=== PATIENT | female | born 1960 | race Caucasian/White ===

== ENCOUNTER 2018-04-17 10:35 | Inpatient (IN) | payer OTHER ==
[2018-04-17] MEDS ORDERED: Morphine VIAL* 10 MG/ML 1 ML VIAL IV ONE (10:44)
[2018-04-17] MEDS ORDERED: HYDROmorphone INJ1* 1 MG/ML SYRINGE IV ONE ×2 (11:49→13:12)
[2018-04-17] MEDS ORDERED: Nicotine Inhaler* 10 MG AMP INH ONE (13:35)
--- NOTE | 2018-04-17 13:35 | ED ---
Lower Extremity - HPI Summary HPI Summary: Patient is a 57-year-old female presenting to the ED after a slip and fall on the ice. She endorses pain to the right lower extremity. Endorses ecchymosis without swelling. Lower extremities deformed on arrival. History of smoking on chronic pain control. Patient denies any other symptoms on this date. She only endorses right lower extremity pain and deformity. She denies history of blood clots. - History of Current Complaint Chief Complaint: EDExtremityLower Stated Complaint: FELL Time Seen by Provider: 04/17/18 10:42 Hx Obtained From: Patient Mechanism Of Injury: Twisted Onset of Pain: Minutes Onset/Duration: Minutes Severity Initially: Severe Severity Currently: Severe Pain Intensity: 10 Pain Scale Used: 0-10 Numeric Timing: Constant Location: Is Discrete @ - right lower extremity Character Of Pain: Aching Associated Signs And Symptoms: Negative: Swelling, Redness, Bruising, Fever, Weakness Aggravating Factor(s): Standing, Ambulation Alleviating Factor(s): Rest, Elevation Able to Bear Weight: No - Risk Factors Gout Risk Factors: Negative DVT Risk Factors: Negative Septic Arthritis Risk Factor: Negative - Allergies/Home Medications Allergies/Adverse Reactions: Allergies Allergy/AdvReac Type Severity Reaction Status Date / Time cephalexin [From Keflex] Allergy Hives Verified 04/17/18 11:10 Home Medications: Home Medications Acetaminophen TAB* [Tylenol TAB*] 325 mg PO Q4H PRN 04/17/18 [History Confirmed 04/17/18] Escitalopram Oxalate [Lexapro] 20 mg PO BEDTIME 04/17/18 [History Confirmed ] Gabapentin CAP(*) [Neurontin 100 mg CAP(*)] 1 cap PO TID PRN 04/17/18 [History Confirmed 04/17/18] LORazepam [Lorazepam] 0.5 tab PO BID PRN 04/17/18 [History Confirmed 04/17/18] Sucralfate TAB* [Carafate*] 1 gm PO TID 04/17/18 [History Confirmed 04/17/18] Tiotropium [place] [Spiriva Respimat] 2 puff INH DAILY PRN 04/17/18 [History Confirmed 04/17/18] PMH/Surg Hx/FS Hx/Imm Hx Previously Healthy: Yes Endocrine/Hematology History: Denies: Hx Diabetes, Hx Thyroid Disease Cardiovascular History: Reports: Hx Hypertension Respiratory History: Denies: Hx Asthma, Hx Chronic Obstructive Pulmonary Disease (COPD) GI History: Denies: Hx Ulcer - Surgical History Surgery Procedure, Year, and Place: appe, hysterectomy, oopher, csection x2, knee surgery, ankle surgery for "shattered" - Immunization History Hx Pertussis Vaccination: No Immunizations Up to Date: Yes Infectious Disease History: No Infectious Disease History: Denies: Hx Clostridium Difficile, Hx Hepatitis, Hx Human Immunodeficiency Virus (HIV), Hx of Known/Suspected MRSA, Hx Shingles, Hx Tuberculosis, Traveled Outside the [place] in Last 30 Days - Social History Occupation: Unemployed Lives: With Family Alcohol Use: None Hx Substance Use: No Substance Use Type: Reports: None Substance Use Comment - Amount & Last Used: pain meds per pain clinic Smoking Status (MU): Light Every Day Tobacco Smoker Type: Cigarettes Amount Used/How Often: 6-7 daily Review of Systems Negative: Fever, Chills, Fatigue, Skin Diaphoresis Negative: Palpitations, Chest Pain Negative: Shortness Of Breath, Cough Genitourinary: Negative Positive: no symptoms reported, see HPI Positive: Arthralgia, Myalgia Skin: Negative Neurological: Negative All Other Systems Reviewed And Are Negative: Yes Physical Exam Triage Information Reviewed: Yes Vital Signs On Initial Exam: Initial Vitals Pulse Pulse Ox 69 97 04/17/18 10:42 04/17/18 10:42 Vital Signs Reviewed: Yes Appearance: Positive: Pain Distress, Signs of Trauma Skin: Positive: Warm, Skin Color Reflects Adequate Perfusion, Other - ecchymosis Head/Face: Positive: Normal Head/Face Inspection Eyes: Positive: EOMI, INOCENCIA, Conjunctiva Clear Neck: Positive: Supple Respiratory/Lung Sounds: Positive: Clear to Auscultation, Breath Sounds Present Musculoskeletal: Positive: Pain @ - right lower ext. Neurological: Positive: Sensory/Motor Intact, Alert, Oriented to Person Place, Time, Speech Normal Psychiatric: Positive: Affect/Mood Appropriate AVPU Assessment: Alert Diagnostics - Vital Signs Vital Signs Temp Pulse Resp BP Pulse Ox 04/17/18 13:18 20 04/17/18 13:03 64 94 04/17/18 12:42 113/68 04/17/18 12:12 69 145/83 95 04/17/18 12:00 66 92 04/17/18 11:53 22 04/17/18 11:42 61 136/83 93 04/17/18 11:12 57 164/115 95 04/17/18 11:00 55 98 04/17/18 10:54 20 04/17/18 10:53 62 172/93 97 04/17/18 10:47 98.2 F 70 20 172/93 92 04/17/18 10:42 69 97 - Laboratory Result Diagrams: 04/17/18 18:13 04/17/18 18:13 Lab Statement: Any lab studies that have been ordered have been reviewed, and results considered in the medical decision making process. - Radiology No standard instances Radiology Interpretation Completed By: Radiologist - IMPRESSION: FRACTURES OF THE PROXIMAL FIBULAR AND DISTAL TIBIAL DIAPHYSES, WITH ARTICULAR EXTENSION OF THE DISTAL TIBIAL FRACTURE. Lower Extremity Course/Dx - Course Course Of Treatment: On arrival, physical examination shows right lower leg deformity with foot to external rotation. X-ray obtained which shows: IMPRESSION: FRACTURES OF THE PROXIMAL FIBULAR AND DISTAL TIBIAL DIAPHYSES, WITH ARTICULAR EXTENSION OF. THE DISTAL TIBIAL FRACTURE. Discussed case with Dr. gIlesias who will see patient in the ED, consult for surgery and I will admit to hospitalist service. - Diagnoses Differential Diagnosis/HQI/PQRI: Positive: Fracture (Closed), Fracture (Open), Sprain, Strain Provider Diagnoses: Closed fracture of tibia and fibula - Physician Notifications Discussed Care Of Patient With: Alon Iglesias Instructed by Provider To: Admit As Inpatient Discharge - Sign-Out/Discharge Documenting (check all that apply): Patient Departure All imaging exams completed and their final reports reviewed: Yes Patient Received Moderate/Deep Sedation with Procedure: No - Discharge Plan Condition: Fair Disposition: ADMITTED TO [facility] - Billing Disposition and Condition Condition: FAIR Disposition: Admitted to [facility]
[2018-04-17] MEDS ORDERED: Mouth Piece, Nicotine* 1 EACH CARTRIDGE ONE (13:47)
[2018-04-17 13:48] LABS: Activated Partial Thrombo Time 16.6 seconds (26.0-36.3); INR 0.77 (0.77-1.02)
[2018-04-17] MEDS ORDERED: oxyCODONE/Acetamin 5/325 MG* TAB PO PRN (13:49)
[2018-04-17] MEDS ORDERED: Acetaminophen TAB* 325 MG PO PRN (13:49)
[2018-04-17] MEDS ORDERED: diPHENhydraMINE IV* 50 MG/ML 1 ml VIAL (BENADRYL) IV PRN (13:49)
[2018-04-17] MEDS ORDERED: Ondansetron INJ* 2 MG/ML VIAL IV PRN (13:49)
[2018-04-17] MEDS: Nicotine Inhaler* 10 MG AMP INH PRN (13:50)
[2018-04-17 13:51] LABS: Albumin 3.8 g/dL (3.2-5.2); CO2 Carbon Dioxide 16 mmol/L (22-32); Calcium 9.3 mg/dL (8.6-10.3); Sodium 135 mmol/L (135-145)
[2018-04-17 13:57] LABS: ALT 11 U/L (7-52); Albumin/Globulin Ratio 1.2 (1-3); Alkaline Phosphatase 61 U/L (34-104); BUN/Creatinine Ratio 24.4 (8-20); Blood Urea Nitrogen 19 mg/dL (6-24); EGFR African American 92.1 (>60); EGFR Non-African American 76.1 (>60); Globulin 3.1 g/dL (2-4); Glucose 96 mg/dL (70-100); Total Protein 6.9 g/dL (6.4-8.9)
[2018-04-17 14:07] LABS: Anion Gap 7 mmol/L (2-11); Chloride 112 mmol/L (101-111)
[2018-04-17] MEDS ORDERED: Magnesium Hydroxide LIQ* 30 ML UDC PO PRN (14:50)
[2018-04-17] MEDS ORDERED: Senna TAB PO PRN (14:50)
[2018-04-17] MEDS ORDERED: Docusate CAP* 100 MG PO PRN (14:50)
[2018-04-17] MEDS ORDERED: Polyethylene Glycol 3350* 17 GM PACKET PO PRN (14:50)
--- NOTE | 2018-04-17 14:55 | HP ---
HISTORY AND PHYSICAL: DATE OF ADMISSION: 04/17/18 REASON FOR HOSPITALIZATION: Right tibia and fibula fractures. 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 on the date of admission, 04/17/18. The patient stepped out of a car. She slipped and twisted her right ankle and lower leg. There was significant pain and the patient was unable to weight bear. She was brought in by ambulance to the [facility] [place] Room. X-rays demonstrated fractures and Orthopedic Surgery consult was called. 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 However, she fractured some ribs just prior to the winter holidays and has not been working since then. The patient lives with her . The patient has not eaten since last night. She had coffee from between 7 and 9 a.m. this morning. 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 She has been seen at the pain clinic by Dr. Gallowya for the last 8 to 10 years and currently takes chronically hydrocodone 10 mg/325 mg, with Tylenol, q.6 hours p.r.n. The patient's primary care physician is TAI Greene, at [facility] , but Dr. Jaime Vanegas has been filling in for Ankita recently. The patient states that in 2004 she had fractures to the contralateral left tibia and fibula, treated with 5 plates. There was subsequent infection, which led to removal of hardware, 4 of the 5 plates. PAST MEDICAL HISTORY: Osteoporosis, disk herniations, chronic pain, hypertension. PAST SURGICAL HISTORY: Left lower leg open reduction and internal fixation, hysterectomy, appendectomy, 2 sections, oophorectomy. MEDICATIONS: 1. Metoprolol. 2. Lorazepam p.r.n. 3. Ibuprofen p.r.n. 4. [place] 10 mg/325 mg p.o. q.6 hours p.r.n. 5. Gabapentin p.r.n. 6. Lexapro q.h.s. 7. Aspirin 81 mg p.o. daily. 8. Tylenol p.r.n. ALLERGIES: KEFLEX (hives). FAMILY HISTORY: The patient's mother had a history of DVTs. The patient does not have a history of DVTs. SOCIAL HISTORY: The patient lives with her . She smokes half a pack per day. She likes to read, walk, and clean in her free time. REVIEW OF SYSTEMS: No current headache, chest pain, shortness of breath, heart palpitations, abdominal pain, diarrhea, numbness, or tingling. No other current joint pain besides the chronic back pain and her right lower extremity pain. PHYSICAL EXAMINATION GENERAL: No acute distress, alert and oriented, appropriate mood and affect, appropriate dress and hygiene, well-coordinated bilateral upper and lower extremities. VITAL SIGNS: Show temperature 98.2 degrees Fahrenheit at 10:47 a.m. At 12:12 p.m. today, pulse was 69, O2 saturations 95% on room air, blood pressure 145/83. EXTREMITIES: Right lower extremity exam shows some soft tissue swelling and bruising about the lower leg. No open skin. There is some clear rotational deformity of the lower leg with the patella facing superior, but the foot facing parallel to the ground consistent with approximately 90 degrees of external rotation deformity in the lower leg. Soft tissue swelling and bruising about the lower leg. Tenderness to palpation on the distal tibia and the proximal fibula. Intact pulses dorsalis pedis and tibialis posterior. Cap refill less than 2 seconds. Sensation intact throughout the foot. No pain with passive range of motion of the toes. DIAGNOSTIC STUDIES/LAB DATA: Labs: Pending. Imaging: X-rays of the right ankle and lower leg were obtained in the emergency department and reviewed by me. These demonstrate fracture of the distal tibial shaft as well as of the proximal fibular neck. Displacement of both. The tibial shaft fracture is just over 3.5 mm. Lateral x-ray view of the ankle and lower leg is worrisome for intraarticular extension of the fracture. ASSESSMENT: 1. Right displaced tibia and fibula fractures. 2. Right tibia shaft fracture is distal with intraarticular extension. PLAN: 1. Hospitalist will see the patient to optimize and clear for surgery. 2. We performed a closed reduction in the emergency room. Procedure: Verbal consent obtained. We pulled longitudinal traction and internally rotated the foot and ankle. This realigned the lower leg. We then placed a posterior long leg splint, one step, and a sugar-tong splint. This was overwrapped with an Len bandage. 3. Elevation on multiple pillows, right lower extremity. 4. Pain control. 5. Labs pending as ordered by hospitalist service. They will evaluate, optimize, and clear the patient for surgery. 6. On careful examination on lateral x-ray views, I am concerned about intraarticular extension, which makes me question intramedullary nailing. To get more information, I am going to get a CT scan of the patient's ankle for more information. 7. Update- Hospitalist service wants an echocardiogram for preop evaluation given a recent history of chest pain. 8. May eat now. NPO after midnight. 8. To the operating room Thursday if/when cleared by Hospitalist for open reduction and internal fixation, right tibia shaft with lag screws and then intramedullary nail. This plan may change based on the findings of pending CT scan. [id number]/CPS #: [id number] [place]
[2018-04-17] MEDS: LORazepam TAB(*) 0.5 MG PO PRN (16:11)
[2018-04-17] MEDS: Gabapentin CAP(*) 100 MG PO PRN (16:11)
[2018-04-17] MEDS: Hydrocodone/Acetamin 10/325 1 TAB PO PRN ×2 (16:11→22:20)
--- NOTE | 2018-04-17 17:21 | CONS ---
CC: Dr. Alon Iglesias; TIA Greene * CONSULTATION REPORT: DATE OF ADMISSION: 04/17/18 DATE OF CONSULT: 04/17/18 PRIMARY CARE PROVIDER: TAI Greene PHYSICIAN REQUESTING CONSULTATION: Dr. Alon Iglesias. ATTENDING PHYSICIAN: Dr. Sal Marley (dictated by Stew Regan NP). REASON FOR CONSULT: Postoperative clearance. HISTORY OF PRESENT ILLNESS: Ms. Cox is a 57-year-old female with past medical history significant for hypertension, emphysema, anxiety, diverticulitis, and IBS who states that she was in her usual state of health this morning when walking to enter a vehicle she slipped and fell and this resulted in right lower extremity pain. She denies any fevers, chills, shortness of breath above her baseline, nausea, vomiting, diarrhea. She states that she intermittently has chest pain. She has found no aggravating causes of this. She states that it just occurs intermittently whether she is resting or walking. She feels that it is anxiety related. She does report having chest pain today prior to her fall, but states that her fall was mechanical and she slipped on ice and that she did not pass out and was not having chest pain at the time of her fall. She reports chronic back pain. She reports having a stress echo, first she says recently, then she states approximately 2 years ago. According to the [facility] records, it appears that the last stress echo she had was in October of 2015. Unfortunately at this time, [facility] is not opening that report for me, so I am unable to see what it said. Due to the right leg pain she was having after her fall, she presented to the emergency room for further evaluation via EMS. EMS did need to give her IV morphine due to the amount of pain she was having en route to the hospital. While in the emergency room, she underwent right lower extremity x-ray showing proximal and distal tibial diaphysis fracture with articular extension of the distal tibial fracture. She was seen by Dr. Iglesias in the emergency room who felt that this would require surgical repair. She was complaining of right ankle pain after she was placed in a splint. She was receiving IV pain medication. The hospitalists were asked to consult the patient for postoperative clearance. She denies any urinary symptoms such as urgency, dysuria, or changes in frequency. PAST MEDICAL HISTORY: 1. Hypertension. 2. Emphysema. 3. Anxiety. 4. Diverticulitis. 5. IBS. PAST SURGICAL HISTORY: 1. Status post bilateral oophorectomy. 2. Status post left ankle ORIF in 2004. 3. Status post hysterectomy. 4. Status post appendectomy. 5. Status post cesarian section x2. HOME MEDICATIONS: Include: 1. Metoprolol tartrate 50 mg oral twice daily. 2. Ibuprofen 800 mg oral every 6 hours as needed for pain. 3. [place] 10/325 mg 1 tablet oral every 6 hours as needed for pain. 4. Lexapro 20 mg by mouth at bedtime. 5. Aspirin 81 mg oral daily. 6. Tylenol 325 mg by mouth every 4 hours as needed for pain. 7. Lorazepam 0.5 mg twice daily as needed for anxiety. 8. Gabapentin 100 mg oral 3 times daily as needed. The patient states that she takes 300 mg at bedtime. 9. Carafate 1 g 3 times daily. 10. Spiriva Respimat 2 puffs inhalation. She states she uses this as needed daily. FAMILY HISTORY: Father with [place] at age 66, which he passed from. Brother with [place] at age 43. No family history of diabetes. Father with history of lung cancer and skin cancer. Mother with a history of skin cancer. Mother with a history of CVA. SOCIAL HISTORY: She is a current smoker smoking approximately 10 cigarettes daily. She has smoked for the last approximately 41 years. She denies alcohol, recreational drug use. Her , Frank Cox, will be her surrogate decision maker in the event she is unable to make decisions for herself. REVIEW OF SYSTEMS: I performed an 11-point review of systems. All the pertinent positives and negatives are mentioned in the history of present illness. The remaining review of systems are negative. PHYSICAL EXAM: Vital Signs: Temperature 98.2, heart rate 69, respiratory rate 22, O2 sat 95% on room air, and blood pressure 113/68. General Appearance: She is alert, pleasant, appears to be in no acute distress. HEENT: Normocephalic, atraumatic. Pupils are equal and reactive to light. Extraocular movements are intact. Respiratory: There is no accessory muscle use. The lungs are clear to auscultation bilateral. Cardiovascular: Regular rate and rhythm. S1 and S2 present. There are no murmurs, rubs, or gallops heard. Abdomen: Soft, nontender, and nondistended. There are bowel sounds present x4. Extremities: There is no lower extremity edema. Pedal pulses are 2+ and symmetric. Musculoskeletal: There is no clubbing or cyanosis noted. The patient exhibits good strength in all extremities. Neurologic: She is alert and oriented x4. Cranial nerves II through XII are grossly intact. Psychological: Calm and cooperative. Skin: There is no rashes or abnormalities seen. She has a splint with an Len wrap to her right lower extremity. DIAGNOSTIC STUDIES/LAB DATA: CBC is pending at this time. Basic metabolic panel: Sodium 135, potassium not performed due to hemolyzed specimen, chloride 112, CO2 of 16, BUN 19, creatinine 0.78, glucose 96. INR 0.77, PTT 15.6. Troponin is also pending at the time of this dictation. EKG shows sinus bradycardia. There are no acute signs of ischemia. When compared to previous EKG from 12/12/09, they are similar. Right ankle x-ray from today. Radiologist's impression: Fractures of the proximal fibular and distal tibial diaphysis with articular extension of the distal tibial fracture. Right lower extremity x-ray from today. Radiologist's impression: Fracture of the proximal fibular and distal tibial diaphysis with articular extension of the distal tibial fracture. Chest x-ray from today. Radiologist's impression: No active cardiopulmonary disease. IMPRESSION: Ms. Cox is a 57-year-old female with past medical history significant for hypertension, emphysema, anxiety, diverticulitis, and irritable bowel syndrome who presents to the emergency room after a mechanical fall resulting in a right tibiofibular fracture. She will be admitted for surgery. ASSESSMENT/PLAN: 1. Right tibiofibular shaft fractures. Management per Orthopedic Surgery with tentative plan for surgery tomorrow. She will have pain management and be placed on a bowel regimen. She has a lower extremity CT pending at this time. According to the RCRI, she has 0 points placing her at class I risk and 3.9% risk of major cardiac event, but in the setting of her report of intermittent chest pain, I would like to get an echocardiogram on her in the morning. Please see below under problem for chest pain for further details. 2. Chest pain. The patient reports that she has intermittent chest pain including with the last episode this morning prior to her fall. She states she has had a workup, but her last stress echo was in 2016. She has an EKG showing no signs of acute ischemia, but I feel that this wants further workup. We are going to monitor on telemetry, trend her troponins, and get an echocardiogram in the morning. As long as this echocardiogram shows no wall motion abnormality , she will be able to proceed to surgery as planned tomorrow. She has a LUIS score of 2. 3. Hypertension. She has been mostly normotensive in the emergency room. We are going to continue her on her metoprolol. 4. Chronic pain. Recommend continuing her on her home gabapentin. 5. Emphysema. She currently does not have any routine inhalers. She is not currently in chronic obstructive pulmonary disease exacerbation. 6. Tobacco abuse. Recommend placing her on nicotine inhaler. She has been informed that this is a tobacco free facility and that no smoking will be allowed. 7. Fluids, electrolytes, and nutrition. Be on a heart healthy diet, n.p.o. after midnight in preparation for surgery. 8. Code status. Full code. 9. DVT prophylaxis. We will defer to Orthopedics. 10. Disposition. Inpatient. Thank you for this consultation. We will continue to follow along. TIME SPENT: The time for this consultation was approximately 60 minutes, greater than half of that was spent with the patient discussing medications, past medical history, events leading to her arrival today, and performing a physical examination. The case has been reviewed with the attending, Dr. Marley, who agrees with the plan of care. STEW FRANKLIN, ZAHRAA [id number] #: [id number] [place]
[2018-04-17 18:28] LABS: ABS Basophils 0.1 10^3/ul (0-0.2); ABS Eosinophils 0.1 10^3/ul (0-0.6); ABS Lymphocytes 4.4 10^3/ul (1.0-4.8); ABS Monocytes 1.4 10^3/ul (0-0.8); ABS Neutrophils 11.7 10^3/ul (1.5-7.7); ABS Nucleated RBC 0 10^3/ul; Eosinophil % 0.7 %; Hematocrit 40 % (35-47); Hemoglobin 13.2 g/dl (12.0-16.0); Lymphocyte % 24.9 %; Mean Corpuscular HGB Conc 33 g/dl (31-36); Mean Corpuscular Hemoglobin 31 pg (27-31); Mean Corpuscular Volume 92 fL (80-97); Mean Platelet Volume 7.3 fL (7.4-10.4); Nucleated Red Blood Cells % 0.1; Platelet Count 354 10^3/ul (150-450); Red Blood Count 4.31 10^6/ul (4.00-5.40); Red Cell Distribution Width 14 % (10.5-15); White Blood Count 17.6 10^3/ul (3.5-10.8)
[2018-04-17 18:38] LABS: Potassium Redraw 4.4 mmol/L (3.5-5.0)
[2018-04-17] MEDS: Morphine VIAL* 4 MG/ML VIAL (1 ml vial) IV PRN (20:47)
[2018-04-17] MEDS ORDERED: Sucralfate TAB* 1 GM PO SCH (21:00)
[2018-04-17] MEDS: Metoprolol Tartrate TAB* 50 mg PO SCH (21:02)
[2018-04-17] MEDS: Citalopram TAB* 40 MG PO SCH (21:02)
[2018-04-17] MEDS: NS 0.9% 1000 ML** 1,000 ML IV SCH (21:34)
[2018-04-18] MEDS: Morphine VIAL* 4 MG/ML VIAL (1 ml vial) IV PRN ×2 (01:18→06:54)
[2018-04-18] MEDS: Gabapentin CAP(*) 100 MG PO PRN (02:38)
[2018-04-18] MEDS: Hydrocodone/Acetamin 10/325 1 TAB PO PRN ×3 (04:24→19:38)
[2018-04-18] MEDS: LORazepam TAB(*) 0.5 MG PO PRN ×2 (04:48→23:31)
[2018-04-18] MEDS: Sucralfate TAB* 1 GM PO SCH ×4 (06:09→15:50)
[2018-04-18] MEDS: NS 0.9% 1000 ML** 1,000 ML IV SCH ×2 (06:56→19:46)
--- NOTE | 2018-04-18 09:37 | PN ---
Subjective Interval History: 40 pack years, wanting cigarette. can't get patch or worsens anxiety(which is very severe already) and palpitations. pinching in left chest, nonexertional x few days. left neck pain. ECHO done, read now done: EF preserved, no wall motion abnormalities. Pt is medically cleared for surgery without further intervention. afebrile no acute events overnight. Objective Active Medications: Acetaminophen (Tylenol Tab*) 650 mg PO Q6H PRN PRN Reason: FEVER Hydrocodone Bitart/Acetaminophen ([place] 10/325 (Nf)) 1 tab PO Q6H PRN PRN Reason: PAIN Last Admin: 04/18/18 04:24 Dose: 1 tab Citalopram Hydrobromide (Celexa Tab*) 40 mg PO BEDTIME [facility] Last Admin: 04/17/18 21:02 Dose: 40 mg Diphenhydramine HCl (Benadryl Iv*) 25 mg IV Q6H PRN PRN Reason: PRURITIS Docusate Sodium (Colace Cap*) 100 mg PO BID PRN PRN Reason: CONSTIPATION Gabapentin (Neurontin Cap(*)) 100 mg PO TID PRN PRN Reason: PAIN Last Admin: 04/18/18 02:38 Dose: 100 mg Sodium Chloride (Ns 0.9% 1000 Ml) 1,000 mls @ 100 mls/hr IV PER RATE [facility] Last Admin: 04/18/18 06:56 Dose: 100 mls/hr Lorazepam (Ativan Tab(*)) 0.5 mg PO BID PRN PRN Reason: ANXIETY Last Admin: 04/18/18 04:48 Dose: 0.5 mg Magnesium Hydroxide (Milk Of Magnesia Liq*) 30 ml PO BID PRN PRN Reason: CONSTIPATION Metoprolol Tartrate (Lopressor Tab*) 50 mg PO BID [facility] Last Admin: 04/17/18 21:02 Dose: 50 mg Morphine Sulfate (Morphine Vial*) 4 mg IV Q4H PRN PRN Reason: PAIN - SEVERE Last Admin: 04/18/18 06:54 Dose: 4 mg Nicotine (Nicotine Inhaler*) 10 mg INH Q2H PRN PRN Reason: CRAVING Ondansetron HCl (Zofran Inj*) 4 mg IV Q6H PRN PRN Reason: NAUSEA Polyethylene Glycol/Electrolytes (Miralax*) 17 gm PO DAILY PRN PRN Reason: CONSTIPATION Senna (Senokot Tab*) 1 tab PO BEDTIME PRN PRN Reason: CONSTIPATION Sucralfate (Carafate*) 1 gm PO 0600,1100,1600 [facility] Last Admin: 04/18/18 08:29 Dose: 1 gm Vital Signs - 8 hr 04/18/18 04/18/18 04/18/18 02:38 04:24 04:46 Temperature 98.6 F Pulse Rate 56 Respiratory 18 18 18 Rate Blood Pressure 116/73 (mmHg) O2 Sat by Pulse 97 Oximetry 04/18/18 04/18/18 04/18/18 04:48 04:51 06:54 Temperature Pulse Rate Respiratory 18 16 18 Rate Blood Pressure (mmHg) O2 Sat by Pulse Oximetry 04/18/18 04/18/18 04/18/18 08:00 08:30 08:31 Temperature Pulse Rate Respiratory 18 18 18 Rate Blood Pressure (mmHg) O2 Sat by Pulse Oximetry Oxygen Devices in Use Now: None Appearance: NAD Eyes: No Scleral Icterus Neck: NL Appearance and Movements; NL JVP, Trachea Midline Respiratory: Symmetrical Chest Expansion and Respiratory Effort, Clear to Auscultation Cardiovascular: NL Sounds; No Murmurs; No JVD Abdominal: NL Sounds; No Tenderness; No Distention, No Hepatosplenomegaly Extremities: No Edema, - - right leg in splint. distal sensation intact. Neurological: Alert and Oriented x 3 Nutrition: Taking PO's Result Diagrams: 04/17/18 18:13 04/17/18 18:13 Assess/Plan/Problems-Billing Assessment: 57 year old female PMH severe anxiety, current smoker (~20 pack years), HTN, IBS presenting with mechanical fall and right tibia-fibula fracture. Recent nonexertional chest pain. No WMA on ECHO, no EKG changse, troponins negative. medically cleared and now s/p ORIF with Dr. Iglesias. - Patient Problems (1) Tibia/fibula fracture Current Visit: Yes Status: Acute Code(s): S82.209A - UNSP FRACTURE OF SHAFT OF UNSP TIBIA, INIT FOR CLOS FX; S82.409A - UNSP FRACTURE OF SHAFT OF UNSP FIBULA, INIT FOR CLOS FX SNOMED Code(s): 081976372 Comment: managment per ortho pain control, PT, bowel regimen. (2) Chest pain Current Visit: Yes Status: Acute Code(s): R07.9 - CHEST PAIN, UNSPECIFIED SNOMED Code(s): 17830050 Comment: ECHO with pEF, no wma cleared for surgery EKG w/o ischemic changes consider stress test as outpatient (3) Anxiety Current Visit: Yes Status: Acute Code(s): F41.9 - ANXIETY DISORDER, UNSPECIFIED SNOMED Code(s): 14119828 Comment: Celexa 40mg daily. (home was lexapro 20mg) (4) DVT prophylaxis Current Visit: Yes Status: Acute Code(s): YGQ0682 - SNOMED Code(s): 541254389 Comment: lovenox. (5) Smoker Current Visit: Yes Status: Acute Code(s): F17.200 - NICOTINE DEPENDENCE, UNSPECIFIED, UNCOMPLICATED SNOMED Code(s): 44308849 Comment: nicotine inhaler. does not tolerate the patch Status and Disposition: ortho inpatient, medicine consulting.
--- NOTE | 2018-04-18 09:40 | PN ---
Progress Note - Progress Note Date of Service: 04/18/18 SOAP: Subjective: Hospitalist saw yesterday. They wanted echo to rule out WMA given history of chest pain. They were also planning on checking troponins. Placed patient on nicotine inhaler. Patient is nervous, has a headache, and wants to smoke a cigarette. Objective: NAD RLE: - Long leg splint in place - May flex and extend toes actively without pain - Toes CR < [address] scan: Showed distal tibial shaft fracture with extension into the ankle joint. Intra-articular extension is non-comminuted and non-displaced; it is mostly in a sagittal plane. There is also a non-displaced distal fibula fracture barely visible on CT. Selected Entries 04/18/18 04:46 Temperature 98.6 F Pulse Rate 56 Respiratory 18 Rate Blood Pressure 116/73 (mmHg) O2 Sat by Pulse 97 Oximetry Laboratory Tests 04/17/18 04/17/18 04/17/18 13:26 18:13 18:13 WBC 17.6 H Neut % (Auto) 66.3 INR (Anticoag Therapy) 0.77 Troponin I 0.00 04/17/18 21:43 WBC Neut % (Auto) INR (Anticoag Therapy) Troponin I 0.00 Assessment: HD 2 complex R lower leg/ankle fractures R distal tibial shaft fracture with intra-articular tibial plafond ankle joint extension R fibular neck fracture R distal fibula non-displaced fracture Plan: - I discussed with patient and family CT findings - Discussed possible surgical treatments for tibial including a) posterior short and long medial plates and b) distal lag screws followed by an IM nail. My technical preference is the latter option, especially given the patient's history of smoking and post-op infection with removal of hardware after surgery for complex lower leg fractures in the distant past per her report. - Echo results and medical clearance are pending - NPO - 3 pillow elevation of RLE in long leg splint - To OR when cleared for ORIF R tibial plafond with screws, ORIF R tibial shaft with IM nail, possible ORIF distal fibula and/or syndesmosis
[2018-04-18] MEDS: Metoprolol Tartrate TAB* 50 mg PO SCH ×3 (10:19→21:43)
--- NOTE | 2018-04-18 10:30 | ECHO ---
Patient: CORNELIA WOLF [facility] Rec#: [id number] : 1960 Date: 04/18/2018 Age: 57y Height: 160 cm / 63.0 in Weight: 57 kg / 125.6 lbs Sex: F BSA: 1.59 Room#: [facility] Admit Date#: 04/17/2018 Type: Inpatient Referring: Soo Mercedes NP Reading: Gabriele Langley MD Claim Adjuster: Soo Carolina RDCS CC: Earle Angulo MD Transthoracic Echocardiogram Indication: Chest Pain BP: 116/73 HR: 62 Rhythm: NSR Findings History: HTN, current smoker. Technical Comments: The study quality is fair. The study is technically limited due to the patient's smoking history. Completed at 0840. Left Ventricle: The left ventricular chamber size is normal. There is no left ventricular hypertrophy. Global left ventricular wall motion and contractility are within normal limits. There is normal left ventricular systolic function. The estimated ejection fraction is 55-60%. There is no consistent Doppler evidence of clinically significant diastolic dysfunction. Left Atrium: The left atrium is moderately dilated. Right Ventricle: The right ventricular cavity size is normal. The right ventricular global systolic function is normal. Right Atrium: The right atrium is mildly dilated. Aortic Valve: The aortic valve is trileaflet. The aortic valve leaflets are mildly thickened. There is a trace of aortic regurgitation. There is no evidence of aortic stenosis. Mitral Valve: The mitral valve leaflets are mildly thickened. There is trace to mild mitral regurgitation. There is no evidence of mitral stenosis. Tricuspid Valve: The tricuspid valve leaflets are normal. There is trace tricuspid regurgitation. Unable to estimate the right ventricular systolic pressure. There is no tricuspid stenosis. Pulmonic Valve: The pulmonic valve structure is not well visualized. The pulmonic valve appears normal. There is a trace pulmonic regurgitation. There is no pulmonic stenosis. Pericardium: There is no significant pericardial effusion. A pericardial fat pad is visualized. Aorta: There is no dilatation of the ascending aorta. There is no dilatation of the aortic arch. The aortic root is normal in size. Pulmonary Artery: The main pulmonary artery is not well visualized. Venous: The inferior vena cava appears normal in size. There is a greater than 50% respiratory change in the inferior vena cava dimension. Summary: There was not any prior study for comparison. Conclusions Global left ventricular wall motion and contractility are within normal limits. There is normal left ventricular systolic function. The estimated ejection fraction is 55-60%. The right ventricular global systolic function is normal. There is no evidence of aortic stenosis. There is trace to mild mitral regurgitation. There is trace tricuspid regurgitation. Unable to estimate the right ventricular systolic pressure. There is no dilatation of the ascending aorta. Measurements Name Value Normal Range RVIDd (AP) 2D 2.8 cm (0.9 - 2.6) RVDdMajor (2D) 3.3 cm (2.2 - 4.4) RAd ISD 4CH 4.9 cm (3.4 - 4.9) RA (A4C)W 4.9 cm (2.9 - 4.6) IVSd (2D) 0.8 cm (0.6 - 1) LVPWd (2D) 0.9 cm (0.6 - 1) LVIDd (2D) 4.3 cm (3.6 - 5.4) LVIDs (2D) 2.7 cm - LV FS (2D) 38 % (25 - 45) Aortic Annulus 1.9 cm (1.4 - 2.6) Ao root diameter (2D) 2.9 cm (2.1 - 3.5) Ascending Ao 3 cm (2.1 - 3.4) Aortic arch 3.2 cm (1.8 - 3.4) LA dimension (AP) 2D 2.8 cm (2.3 - 3.8) LAd ISD 4CH 5.8 cm (2.9 - 5.3) LA ISD 4CH W 3.4 cm (2.5 - 4.5) Name Value Normal Range LA ESV BP (A/L) index 42 ml/m2 - Name Value Normal Range MV E-wave Vmax 0.9 m/sec - MV deceleration time 162 msec - MV A-wave Vmax 0.5 m/sec - MV E:A ratio 1.9 ratio - LV septal e' Vmax 0.09 m/sec - LV lateral e' Vmax 0.09 m/sec - LV E:e' septal ratio 10 ratio - LV E:e' lateral ratio 10 ratio - Name Value Normal Range AV Vmax 1.4 m/sec - AV VTI 32 cm - AV peak gradient 8 mmHg - AV mean gradient 4 mmHg - LVOT Vmax 1.3 m/sec - LVOT VTI 29 cm - LVOT peak gradient 7 mmHg - LVOT mean gradient 3 mmHg - EDDIE Vmax 0.6 m/sec - Name Value Normal Range IVC diameter 1.9 cm - Name Value Normal Range PV Vmax 0.7 m/sec - PV peak gradient 2 mmHg -
--- NOTE | 2018-04-18 10:43 | PN ---
Hospitalist Progress Note ECHO done, read now done: EF preserved, no wall motion abnormalities. Pt is medically cleared for surgery without further intervention.
[2018-04-18] MEDS ORDERED: Clindamycin 900 MG/D5W BAG(*) 900 MG/50 ML BAG IVPB ONE (11:59)
[2018-04-18] MEDS ORDERED: Propofol* 10 MG/ML 20 ML BTL ONE (12:40)
[2018-04-18] MEDS ORDERED: Rocuronium* 10 MG/ML VIAL ONE (12:40)
[2018-04-18] MEDS ORDERED: fentaNYL* 50 MCG/ML 5 ML VIAL (250 MCG VIAL) ONE ×2 (12:40→13:42)
[2018-04-18] MEDS ORDERED: Midazolam* 1 MG/ML 5 ML VIAL (5 MG) ONE ×2 (12:40→16:36)
[2018-04-18] MEDS ORDERED: Dexamethasone IV* 4 MG/ML 1 ML (4 MG) ONE (13:26)
[2018-04-18] MEDS ORDERED: Bupivacaine 0.5%* 50 ML VIAL ONE (14:21)
[2018-04-18] MEDS ORDERED: DiMENhydriNATE IV* 50 MG/ML VIAL IV PUSH PRN (15:28)
[2018-04-18] MEDS ORDERED: Ondansetron INJ* 2 MG/ML VIAL IV PRN (15:28)
[2018-04-18] MEDS ORDERED: HYDROmorphone INJ1* 1 MG/ML SYRINGE IV PRN (15:28)
[2018-04-18] MEDS ORDERED: Naloxone* 0.4 MG/ML 1 ML VIAL IV PRN (15:28)
[2018-04-18] MEDS ORDERED: Ondansetron INJ* 2 MG/ML VIAL ONE ×2 (15:56→16:50)
[2018-04-18] MEDS ORDERED: Ketorolac INJ* 30 MG/ML 1 ML VIAL ONE (15:56)
[2018-04-18] MEDS ORDERED: DiMENhydriNATE IV* 50 MG/ML VIAL ONE (17:09)
[2018-04-18] MEDS ORDERED: fentaNYL* 50 MCG/ML 2 ML VIAL (100 MCG VIAL) ONE (17:48)
[2018-04-18] MEDS: fentaNYL* 50 MCG/ML 2 ML VIAL (100 MCG VIAL) IV PRN ×3 (17:49→18:09)
[2018-04-18] MEDS ORDERED: Acetaminophen TAB* 325 MG PO PRN (19:00)
[2018-04-18] MEDS: Citalopram TAB* 40 MG PO SCH (21:43)
[2018-04-18] MEDS: Clindamycin 600 MG/D5W BAG(*) 600 MG/50 ML BAG IV SCH (21:44)
[2018-04-18] MEDS: Morphine TAB Extended Release (*) 15 MG TAB.ER PO SCH (21:44)
--- NOTE | 2018-04-18 21:48 | OP ---
OPERATIVE REPORT: DATE OF OPERATION: 04/18/18 DATE OF : 60 SURGEON: Alon Iglesias MD SUPPLY PERSON: TAI Keenan ANESTHESIOLOGIST: Jakub Ashley MD ANESTHESIA: General anesthesia, local anesthesia with 10 cc of 0.25% Marcaine without epinephrine. PRE-OP DIAGNOSES: 1. Right distal tibia shaft fracture with intraarticular extension into the ankle joint. 2. Right distal tibia plafond fracture, with simple intraarticular extension. 3. Right distal fibula fracture, nondisplaced at the level of the malleolus. 4. Right fibular neck fracture, minimally displaced. POST-OP DIAGNOSES: 1. Right distal tibia shaft fracture with intraarticular extension into the ankle joint. 2. Right distal tibia plafond fracture, with simple intraarticular extension. 3. Right distal fibula fracture, nondisplaced at the level of the malleolus. 4. Right fibular neck fracture, minimally displaced. PROCEDURES: 1. Open reduction and internal fixation right tibial shaft fracture with intramedullary nail and loc angelica screws. 2. Open reduction and internal fixation right distal tibia plafond fracture with lag screws. 3. Closed treatment, right distal fibula and proximal fibula fractures. ANTIBIOTICS: Clindamycin 900 mg IV. IV FLUIDS: 2200 cc crystalloid. TOURNIQUET TIME: Unavailable now. It was significantly less than 120 minutes. SKIN TO SKIN TIME: 151 minutes. SPECIMEN: None. IMPLANTS: Ulisses tibial nail, 10 mm x 300 mm with a 5 mm end cap added. Proximal locking screws, x 2, each 5 mm in width with one of them 32.5 mm long and the other 50 mm long. Distal locking screws were 5 mm x 32.5 mm, the other was 5 mm x 37.5 mm. I also in the tibial plafond used 2 Synthes screw s. One of them was 3.5 mm cortical, noncannulated, 36 mm in length. The other was 4.0 mm cannulated , partially threaded and that was 40 mm in length. ESTIMATED BLOOD LOSS: Less than 50 cc. COMPLICATIONS: None. INDICATIONS FOR PROCEDURE: The patient is a 57-year-old woman, with hypertension, chronic pain, and a smoking history, who injured herself on 04/17/18, tripping and falling while getting out of a car. Emergency room films showed a high energy injury, a tibial shaft fracture with displacement and comm inution. X-ray hinted and CT scan confirmed an intraarticular extension of that fracture into the ti bial plafond, but no displacement of the intraarticular component. X-ray had identified a fibular ne ck fracture. CT confirmed this and CT also showed a barely visible distal fibula lateral malleolus f racture, nondisplaced. I thought of variety of fixation constructs including short posterior and long medial plates, but ult imately decided on fixing the tibial shaft fracture with an intramedullary nail and fixing the tibial plafond component with 2 lag screws. Fibular neck fracture clearly did not need treatment. Given th at I was going to hold the patient nonweightbearing and she had a smoking history, I decided that I w ould only treat the lateral malleolus fracture should I appreciate a displacement intraoperatively. Of note, the patient described to me surgery on the contralateral ankle in approximately 2004, which involved as many as 5 plates according to her, and required removal of the plates because of infectio n. Discussed risks and potential complications with the patient. The patient decided to go forward with surgery. DESCRIPTION OF PROCEDURE: The patient's signed an operative consent on the floor. Preoperatively on the floor also, the operative extremity was marked. The patient was taken back to the operating room and placed supine on operating room table, radiolucent. Sedated and intubated. The right proximal thigh had been placed on a tourniquet. A bone foam was placed under the right lower extremity. Bump s under the right hemipelvis. The right lower extremity was prepped and then draped. Surgical time-out was performed. Esmarch was applied and tourniquet was elevated to 300 mmHg. I made an anterior approach to the ankle joint and distal tibia. Longitudinal incision made just med ial to the tibialis anterior. I dissected down to joint and bone. Retractors placed. Placed a K-wi re bicortically. This was slightly more medial and angled slightly in a lateral direction. C-arm im aging showed excellent position of K-wire. I overdrilled this and then placed a 4.0 mm partially thr eaded cannulated screw. I then placed a second screw, starting more lateral and aiming more directly posterior. The screw was a 3.5 mm cortical screw. C-arm images showed no displacement at the fract ure site and excellent placement of hardware in all planes. Excellent length of hardware as well. Closure of the ankle wound. I closed all appropriate levels of extensor retinaculum with figure-of-e ight stitches using both Vicryl 2-0 and Ethibond 4-0 suture. Closure of the skin with horizontal mat tress and simple stitches using nylon 4-0 suture. We next moved our attention to the tibial shaft fracture. Radiolucent triangle was obtained. Pertinent anatomy marked with a skin marker. Midline, anterior, l ongitudinal skin incision. Dissection continued down to paratenon. Paratenon split and retracted. I split the patellar tendon at its midpoint. I visualized the proximal tibia. I placed my pin. C-a rm 2-dimensional, confirmed excellent position. Used entry reamer to open hole. Placed ball-tip jovanni dewire with a bend at the tip. Reduced the tibial shaft fracture. Advanced the pin to the distal mo st tibia, proximal to the 2 screws placed previously. At this point, I dropped the tourniquet. Reamed starting at 9 mm up to 11.5 mm. Sized for the nail. Picked a 10 mm x 300 mm nail. I placed the nail. I confirmed adequate reduction. With the guide, I placed 2 locking screws proximally from medial and then lateral. Bone quality was poor for the medial screw, but better for the screw place d from lateral to medial. C-arm confirmed excellent position of screws. I moved to the distal lower leg. I used perfect platinum technique to place 2 screws from medial to la teral through the tibial nail. Final C-arm pictures at the fracture site and at the proximal and distal extent of the tibial shaft, tibial nail showed excellent reduction and fixation. Obtained x-ray views of the ankle. Still could not visualize lateral malleolus fracture. Performed external rotation stress view. No asymmetry of the mortise. So, decided not to fix the lateral malle olus with the plate and screws or to treat the syndesmosis. Irrigation multiple times of the knee joint. End cap was placed at the proximal end of the tibial na il. Closed the patellar tendon with buried and nonburied [id number]-pr-ffegm stitches using Ethibond 0 s uture. Closure of the paratenon with a running stitch using Vicryl 2-0 suture. Closure of the subcu taneous tissue with buried simple stitches using Vicryl 3-0 suture. Closure of the skin incisions bot h the main longitudinal as well as the stab incisions with deo. Local anesthesia was applied, 10 cc of 0.25% Marcaine without epinephrine about the surgical sites. Xeroform, 4x4s, sterile Webril applied. A short-leg splint was then applied with plaster, posterior slab and then a sugar-tong. Overwrapped with an Len bandage. The patient was then awakened, extubated and brought to the PACU. DISPOSITION: The patient will be admitted postoperatively for IV antibiotics x24 hours, q.8 hours. She will start physical therapy tomorrow morning. Advance diet as tolerated. Pain medication regime n as appropriate. The patient will be nonweightbearing in right lower extremity. She can be toe-castillo ch weightbearing just for transfers to try to minimize the use of a Sarah lift. She will be on Loven ox 40 mg subcu daily x4 weeks postoperatively. The patient will follow up with me in clinic approxim ately 14 days postoperatively. I stressed to the family repeatedly as well as to the patient the imp ortance of her remaining nonweightbearing given the complex nature of this ankle and lower leg injury . [id number]/[facility] #: [id number]
[2018-04-18] MEDS: Ketorolac INJ* 15 MG/ML 1 ML VIAL IV PUSH PRN (23:31)
[2018-04-19] MEDS: Morphine VIAL* 4 MG/ML VIAL (1 ml vial) IV PRN ×2 (01:22→10:22)
[2018-04-19] MEDS: Hydrocodone/Acetamin 10/325 1 TAB PO PRN ×4 (01:49→20:08)
[2018-04-19] MEDS: Clindamycin 600 MG/D5W BAG(*) 600 MG/50 ML BAG IV SCH ×2 (05:06→13:31)
[2018-04-19] MEDS: Nicotine Inhaler* 10 MG AMP INH PRN (05:17)
[2018-04-19] MEDS: Sucralfate TAB* 1 GM PO SCH ×3 (05:32→18:46)
[2018-04-19] MEDS: Ketorolac INJ* 15 MG/ML 1 ML VIAL IV PUSH PRN ×2 (05:33→19:27)
[2018-04-19] MEDS: NS 0.9% 1000 ML** 1,000 ML IV SCH ×2 (05:35→16:37)
[2018-04-19 06:19] LABS: ABS Basophils 0 10^3/ul (0-0.2); ABS Eosinophils 0 10^3/ul (0-0.6); ABS Lymphocytes 1.5 10^3/ul (1.0-4.8); ABS Monocytes 0.9 10^3/ul (0-0.8); ABS Neutrophils 7.8 10^3/ul (1.5-7.7); ABS Nucleated RBC 0 10^3/ul; Eosinophil % 0 %; Hematocrit 29 % (35-47); Hemoglobin 9.8 g/dl (12.0-16.0); Lymphocyte % 14.3 %; Mean Corpuscular HGB Conc 34 g/dl (31-36); Mean Corpuscular Hemoglobin 31 pg (27-31); Mean Corpuscular Volume 92 fL (80-97); Nucleated Red Blood Cells % 0; Platelet Count 238 10^3/ul (150-450); Red Blood Count 3.13 10^6/ul (4.00-5.40); Red Cell Distribution Width 14 % (10.5-15); White Blood Count 10.2 10^3/ul (3.5-10.8)
[2018-04-19 06:40] LABS: BUN/Creatinine Ratio 23.5 (8-20); Calcium 7.8 mg/dL (8.6-10.3); EGFR African American 150.4 (>60); EGFR Non-African American 124.3 (>60); Potassium 3.7 mmol/L (3.5-5.0)
[2018-04-19] MEDS: Enoxaparin(*) 40 MG/0.4 ML SYR SUBCUT SCH (10:25)
[2018-04-19] MEDS: Morphine TAB Extended Release (*) 15 MG TAB.ER PO SCH ×2 (10:25→22:11)
[2018-04-19] MEDS: Metoprolol Tartrate TAB* 50 mg PO SCH ×2 (10:26→20:09)
[2018-04-19] MEDS: LORazepam TAB(*) 0.5 MG PO PRN ×2 (11:12→20:08)
--- NOTE | 2018-04-19 13:09 | PN ---
Progress Note - Progress Note Date of Service: 04/19/18 SOAP: Subjective: POD #1 Right tibia ORIF with IM nail. States that she is doing ok. Pain under control. Denies CP/SOB, f/c, n/v or calf pain Objective: Vitals: Temp Pulse Resp BP Pulse Ox 98.7 F 62 16 131/73 99 04/19/18 11:50 04/19/18 11:50 04/19/18 11:50 04/19/18 11:50 04/19/18 11:50 Gen: A&O x3, NAD at rest sitting in chair with leg elevated RLE: Dressing C/D/I, +f/e at MTPs, N/V intact Assessment: POD #1 Right tibia ORIF with IM nail. Plan: Cont PT/OT, NWB RLE D/C [place] today Ok for d/c home when able to ambulate safely with walker
[2018-04-19] MEDS ORDERED: Pantoprazole TAB * 40 MG TAB PO ONE (16:06)
[2018-04-19] MEDS ORDERED: Gabapentin CAP(*) 300 MG PO PRN (18:00)
--- NOTE | 2018-04-19 18:39 | PN ---
Subjective Date of Service: 04/19/18 Interval History: Was agitated coming out of surgery in the PACU, states they asked family members to come help hold her down. got versed has ecchymosis to inside of lower lip and on either side of chin. did not sleep much. wanting increase in her gabapentin - says she has baseline 100mg TID prn rx but then additional 300mg TID prn if first does not work. usually does not take more than 600-700mg daily total. less anxious. pringle out, getting up to bathroom. Objective Active Medications: Acetaminophen (Tylenol Tab*) 650 mg PO Q4H PRN PRN Reason: TEMP > 100 Hydrocodone Bitart/Acetaminophen ([place] 10/325 (Nf)) 1 tab PO Q6H PRN PRN Reason: PAIN Last Admin: 04/19/18 13:34 Dose: 1 tab Citalopram Hydrobromide (Celexa Tab*) 40 mg PO BEDTIME [facility] Last Admin: 04/18/18 21:43 Dose: 40 mg Diphenhydramine HCl (Benadryl Iv*) 25 mg IV Q6H PRN PRN Reason: PRURITIS Docusate Sodium (Colace Cap*) 100 mg PO BID PRN PRN Reason: CONSTIPATION Enoxaparin Sodium (Lovenox(*)) 40 mg SUBCUT DAILY [facility] Last Admin: 04/19/18 10:25 Dose: 40 mg Gabapentin (Neurontin Cap(*)) 300 mg PO TID PRN PRN Reason: PAIN Sodium Chloride (Ns 0.9% 1000 Ml) 1,000 mls @ 100 mls/hr IV PER RATE [facility] Last Admin: 04/19/18 16:37 Dose: 100 mls/hr Ketorolac Tromethamine (Toradol Inj*) 15 mg IV PUSH Q6H PRN PRN Reason: PAIN - MODERATE TO SEVERE Last Admin: 04/19/18 05:33 Dose: 15 mg Lorazepam (Ativan Tab(*)) 0.5 mg PO BID PRN PRN Reason: ANXIETY Last Admin: 04/19/18 11:12 Dose: 0.5 mg Magnesium Hydroxide (Milk Of Magnesia Liq*) 30 ml PO BID PRN PRN Reason: CONSTIPATION Metoprolol Tartrate (Lopressor Tab*) 50 mg PO BID [facility] Last Admin: 04/19/18 10:26 Dose: 50 mg Morphine Sulfate (Ms Contin(*)) 15 mg PO BID [facility] Last Admin: 04/19/18 10:25 Dose: 15 mg Nicotine (Nicotine Inhaler*) 10 mg INH Q2H PRN PRN Reason: CRAVING Last Admin: 04/19/18 05:17 Dose: 10 mg Ondansetron HCl (Zofran Inj*) 4 mg IV Q6H PRN PRN Reason: NAUSEA Pantoprazole Sodium (Protonix Tab*) 40 mg PO DAILY [facility] Polyethylene Glycol/Electrolytes (Miralax*) 17 gm PO DAILY PRN PRN Reason: CONSTIPATION Senna (Senokot Tab*) 1 tab PO BEDTIME PRN PRN Reason: CONSTIPATION Sucralfate (Carafate*) 1 gm PO 0600,1100,1600 [facility] Last Admin: 04/19/18 11:09 Dose: 1 gm Vital Signs - 8 hr 04/19/18 04/19/18 04/19/18 11:12 11:25 11:50 Temperature 98.7 F Pulse Rate 62 Respiratory 16 16 16 Rate Blood Pressure 131/73 (mmHg) O2 Sat by Pulse 99 Oximetry 04/19/18 04/19/18 04/19/18 12:30 13:34 13:37 Temperature Pulse Rate Respiratory 16 16 16 Rate Blood Pressure (mmHg) O2 Sat by Pulse Oximetry 04/19/18 04/19/18 15:30 15:36 Temperature 98.6 F Pulse Rate 62 Respiratory 16 22 Rate Blood Pressure 128/73 (mmHg) O2 Sat by Pulse 98 Oximetry Oxygen Devices in Use Now: None Appearance: NAD Respiratory: Symmetrical Chest Expansion and Respiratory Effort, Clear to Auscultation Cardiovascular: NL Sounds; No Murmurs; No JVD Abdominal: NL Sounds; No Tenderness; No Distention Extremities: No Edema, - - left leg in RAMOS wrap. distal sensation and movement intact. Skin: - - ecchymoses on chin and inside lower lip Neurological: Alert and Oriented x 3 Nutrition: Taking PO's Result Diagrams: 04/19/18 06:05 04/19/18 06:05 Additional Lab and Data: Laboratory Results - last 24 hr 04/19/18 04/19/18 06:05 06:05 WBC 10.2 RBC 3.13 L Hgb 9.8 L Hct 29 L MCV 92 MCH 31 MCHC 34 RDW 14 Plt Count 238 MPV 7.0 L Neut % (Auto) 77.0 Lymph % (Auto) 14.3 [place] % (Auto) 8.5 Eos % (Auto) 0 Baso % (Auto) 0.2 Absolute Neuts (auto) 7.8 H Absolute Lymphs (auto) 1.5 Absolute Monos (auto) 0.9 H Absolute Eos (auto) 0 Absolute Basos (auto) 0 Absolute Nucleated RBC 0 Nucleated RBC % 0 Sodium 138 Potassium 3.7 Chloride 111 Carbon Dioxide 23 Anion Gap 4 BUN 12 Creatinine 0.51 Est GFR ( Amer) 150.4 Est GFR (Non-Af Amer) 124.3 BUN/Creatinine Ratio 23.5 H Glucose 115 H Calcium 7.8 L Assess/Plan/Problems-Billing Assessment: 57 year old female PMH severe anxiety, current smoker (~20 pack years), HTN, IBS presenting with mechanical fall and right tibia-fibula fracture. Recent nonexertional chest pain. No WMA on ECHO, no EKG changse, troponins negative. medically cleared and now POD#[address] Iglesias. - Patient Problems (1) Tibia/fibula fracture Current Visit: Yes Status: Acute Code(s): S82.209A - UNSP FRACTURE OF SHAFT OF UNSP TIBIA, INIT FOR CLOS FX; S82.409A - UNSP FRACTURE OF SHAFT OF UNSP FIBULA, INIT FOR CLOS FX SNOMED Code(s): 762644615 Comment: managment per ortho pain control, PT, bowel regimen. non weight bearing right leg (2) Chest pain Current Visit: Yes Status: Acute Code(s): R07.9 - CHEST PAIN, UNSPECIFIED SNOMED Code(s): 30680314 Comment: reolved. ECHO with pEF, no wma cleared for surgery and now s/p EKG w/o ischemic changes consider stress test as outpatient (3) Anxiety Current Visit: Yes Status: Acute Code(s): F41.9 - ANXIETY DISORDER, UNSPECIFIED SNOMED Code(s): 52006868 Comment: Celexa 40mg daily. (home was lexapro 20mg) pt requested gabapentin increase back to her home dose of up to 300mg TID prn. (4) DVT prophylaxis Current Visit: Yes Status: Acute Code(s): GVC6573 - SNOMED Code(s): 899439615 Comment: lovenox. (5) Smoker Current Visit: Yes Status: Acute Code(s): F17.200 - NICOTINE DEPENDENCE, UNSPECIFIED, UNCOMPLICATED SNOMED Code(s): 59827420 Comment: nicotine inhaler. does not tolerate the patch Status and Disposition: ortho inpatient, medicine consulting.
[2018-04-19] MEDS: Citalopram TAB* 40 MG PO SCH (20:09)
[2018-04-20] MEDS: Morphine TAB Extended Release (*) 15 MG TAB.ER PO SCH ×2 (00:14→08:18)
[2018-04-20] MEDS: Hydrocodone/Acetamin 10/325 1 TAB PO PRN ×2 (02:09→08:18)
[2018-04-20] MEDS: Sucralfate TAB* 1 GM PO SCH ×2 (05:34→11:33)
[2018-04-20] MEDS: Ketorolac INJ* 15 MG/ML 1 ML VIAL IV PUSH PRN ×2 (05:35→11:31)
--- NOTE | 2018-04-20 08:05 | PN ---
Progress Note - Progress Note Date of Service: 04/20/18 SOAP: Subjective: resting comfortably, pain well controlled on current pain regimen Objective: Vital Signs Temp Pulse Resp BP Pulse Ox 96.7 F 55 16 143/77 100 04/20/18 07:31 04/20/18 07:31 04/20/18 07:31 04/20/18 07:31 04/20/18 07:31 Laboratory Last Values WBC 10.2 10^3/ul (3.5-10.8) 04/19/18 06:05 RBC 3.13 10^6/ul (4.00-5.40) L 04/19/18 06:05 Hgb 9.8 g/dl (12.0-16.0) L 04/19/18 06:05 Hct 29 % (35-47) L 04/19/18 06:05 MCV 92 fL (80-97) 04/19/18 06:05 MCH 31 pg (27-31) 04/19/18 06:05 MCHC 34 g/dl (31-36) 04/19/18 06:05 RDW 14 % (10.5-15) 04/19/18 06:05 Plt Count 238 10^3/ul (150-450) 04/19/18 06:05 MPV 7.0 fL (7.4-10.4) L 04/19/18 06:05 Neut % (Auto) 77.0 % 04/19/18 06:05 Lymph % (Auto) 14.3 % 04/19/18 06:05 [place] % (Auto) 8.5 % 04/19/18 06:05 Eos % (Auto) 0 % 04/19/18 06:05 Baso % (Auto) 0.2 % 04/19/18 06:05 Absolute Neuts (auto) 7.8 10^3/ul (1.5-7.7) H 04/19/18 06:05 Absolute Lymphs (auto) 1.5 10^3/ul (1.0-4.8) 04/19/18 06:05 Absolute Monos (auto) 0.9 10^3/ul (0-0.8) H 04/19/18 06:05 Absolute Eos (auto) 0 10^3/ul (0-0.6) 04/19/18 06:05 Absolute Basos (auto) 0 10^3/ul (0-0.2) 04/19/18 06:05 Absolute Nucleated RBC 0 10^3/ul 04/19/18 06:05 Nucleated RBC % 0 04/19/18 06:05 INR (Anticoag Therapy) 0.77 (0.77-1.02) 04/17/18 13:26 APTT 16.6 seconds (26.0-36.3) L 04/17/18 13:26 Sodium 138 mmol/L (135-145) 04/19/18 06:05 Potassium 3.7 mmol/L (3.5-5.0) 04/19/18 06:05 Chloride 111 mmol/L (101-111) 04/19/18 06:05 Carbon Dioxide 23 mmol/L (22-32) 04/19/18 06:05 Anion Gap 4 mmol/L (2-11) 04/19/18 06:05 BUN 12 mg/dL (6-24) 04/19/18 06:05 Creatinine 0.51 mg/dL (0.51-0.95) 04/19/18 06:05 Est GFR ( Amer) 150.4 (>60) 04/19/18 06:05 Est GFR (Non-Af Amer) 124.3 (>60) 04/19/18 06:05 BUN/Creatinine Ratio 23.5 (8-20) H 04/19/18 06:05 Glucose 115 mg/dL (70-100) H 04/19/18 06:05 Calcium 7.8 mg/dL (8.6-10.3) L 04/19/18 06:05 Total Bilirubin 0.20 mg/dL (0.2-1.0) 04/17/18 13:26 AST TNP 04/17/18 13:26 ALT 11 U/L (7-52) 04/17/18 13:26 Alkaline Phosphatase 61 U/L (34-104) 04/17/18 13:26 Troponin I 0.00 ng/mL (<0.04) 04/17/18 21:43 Total Protein 6.9 g/dL (6.4-8.9) 04/17/18 13:26 Albumin 3.8 g/dL (3.2-5.2) 04/17/18 13:26 Globulin 3.1 g/dL (2-4) 04/17/18 13:26 Albumin/Globulin Ratio 1.2 (1-3) 04/17/18 13:26 incision: c/d/i PE: able to wiggle toes with intact sensation Assessment: POD#2 s/p ORIF right tibia Plan: 1) PT/OT- NWB RLE 2) home today 3) Lovenox 40mg daily x 3 weeks 4) F/U with [facility] in 2 weeks; keep splint clean and dry until post-op appt
[2018-04-20] MEDS: Metoprolol Tartrate TAB* 50 mg PO SCH (08:18)
[2018-04-20] MEDS: Enoxaparin(*) 40 MG/0.4 ML SYR SUBCUT SCH (08:19)
[2018-04-20] MEDS ORDERED: Pantoprazole TAB * 40 MG TAB PO SCH (09:00)
[2018-04-20 12:11] VITALS: BP 154/81
--- NOTE | 2018-04-20 12:22 | DS ---
DATE OF ADMISSION: 04/17/2018. DATE OF DISCHARGE: 04/20/2018. ATTENDING SURGEON: Dr. Alon Iglesias * (dictated by TAI [place]). PRINCIPAL DIAGNOSIS: Right tibia and fibula fractures. DISCHARGE DIAGNOSIS: Right tibia and fibula fractures. HISTORY OF PRESENT ILLNESS/HOSPITAL COURSE: Ms. Cox is a 57-year-old female who slipped stepping out of her car on 04/17/2018. X-rays confirmed right tibia and fibula fractures. She was admitted electively to the hospital on 04/17/2018 for right tibia and fibula fractures. She underwent an ORIF of the right tibial shaft fracture with an intramedullary nail and locking screws. Following the surgery, she remained nonweightbearing. She did well with physical therapy and was able to ambulate with a walker. She was discharged home on 04/20/2018. Postoperatively, she was placed on Lovenox for DVT prophylaxis. DISCHARGE MEDICATIONS: 1. Lovenox 40 mg subcu daily for 3 weeks. 2. Extended release Morphine 20 mg twice a day for 1 week. 3. [place] 10/325 as needed. [facility]. 4. Colace 100 mg tab 2 to 3 times daily as needed for constipation. 5. Celexa 40 mg at bedtime. 6. Gabapentin 300 mg 3 times a day as needed. 7. Ativan 0.5 mg twice a day as needed. 8. Metoprolol 50 mg twice a day. 9. Protonix 40 mg daily. PHYSICAL EXAMINATION UPON DISCHARGE: She was afebrile. Her vital signs were stable. Her splint was clean and intact. She was able to wiggle her toes and she had good capillary refill. DISCHARGE DISPOSITION: She was discharged home in stable condition. DISCHARGE INSTRUCTIONS: She was discharged home. She will remain nonweightbearing of the right lower extremity. She was instructed to take Lovenox 40 mg subcu daily for three weeks. She was given extended release Morphine twice daily for one week for pain. She gets [place] 10/325 from the [facility] and she will continue this prescription as needed for breakthrough pain during the day. She was also given Colace 100 mg tabs to take two to three times a day as needed for constipation. She will keep the splint clean, dry, and intact until her postoperative appointment with Dr. Iglesias in two weeks. TAI W[place] [id number]/[facility] #: [id number] [place]
== END 2018-04-20 12:40 | disposition home health service (06) | DRG 313 ==
LOC: ED 10:35 → SSU 13:49
PROVIDERS: ADMIT Orthopaedic Surgery; ATTEND Orthopaedic Surgery
PROC: 0QSG06Z Reposition Right Tibia with Intramedullary Internal Fixation Device, Open Approach (ICD-10-PCS; principal; 2018-04-18 13:00)
PROC: 0QSG04Z Reposition Right Tibia with Internal Fixation Device, Open Approach (ICD-10-PCS; 2018-04-18 13:00)
DX: S82.64XA Nondisplaced fracture of lateral malleolus of right fibula, initial encounter for closed fracture (principal); S82.291A Other fracture of shaft of right tibia, initial encounter for closed fracture; S82.832A Other fracture of upper and lower end of left fibula, initial encounter for closed fracture; W01.0XXA Fall on same level from slipping, tripping and stumbling without subsequent striking against object, initial encounter; Y92.096 Garden or yard of other non-institutional residence as the place of occurrence of the external cause; I10 Essential (primary) hypertension; J43.9 Emphysema, unspecified; F41.9 Anxiety disorder, unspecified; K57.90 Diverticulosis of intestine, part unspecified, without perforation or abscess without bleeding; R07.9 Chest pain, unspecified; M51.26 Other intervertebral disc displacement, lumbar region; G89.29 Other chronic pain; M81.0 Age-related osteoporosis without current pathological fracture; K58.9 Irritable bowel syndrome, unspecified; F17.210 Nicotine dependence, cigarettes, uncomplicated; Z79.1 Long term (current) use of non-steroidal anti-inflammatories (NSAID); Z79.82 Long term (current) use of aspirin; Z79.51 Long term (current) use of inhaled steroids; Z79.899 Other long term (current) drug therapy; Z82.49 Family history of ischemic heart disease and other diseases of the circulatory system; Z80.1 Family history of malignant neoplasm of trachea, bronchus and lung; Z80.8 Family history of malignant neoplasm of other organs or systems; Z82.3 Family history of stroke; Z83.2 Family history of diseases of the blood and blood-forming organs and certain disorders involving the immune mechanism
CPT/HCPCS: 36415; 71046; 76000; 80048; 80053; 84484; 85025; 85610; 85730; 93005; 93306; 99284; A9270-GY; G8987-GO-CL; G8988-GO-CJ; J1100; J1170; J1240; J1650; J1885; J2250; J2270; J2405; J2704; J3010

== ENCOUNTER 2019-03-29 19:02 | Emergency (ER) | payer OTHER ==
--- OUTSIDE RECORDS SUMMARY | 2019-03-29 19:08 | XMS REPORT | Continuity of Care Document ---
:1960 External Reference #:[id number] Author Name Alon Iglesias MD (transmitted by agent of provider Romy Hernandez) Address [address] [place] [id number] Care Team Providers Name Role Phone Alon Vanegas D.O. 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 Onset: 11/11/2017 Smoking reduced Chu Flynn M.D. Onset: 11/11/2017 Displaced pilon fracture of right tibia, Alon Iglesias MD Onset: 2018 subsequent encounter for closed fracture with routine healing Displaced comminuted fracture of shaft of Alon Iglesias MD Onset: 05/27 right tibia, subsequent encounter for closed fracture with routine healing Social History Type Date Description Comments Sex Unknown Tobacco Use Start: Unknown Currently smokes 1-5 Quitting, down to 1 Cigarettes Daily per day. 45 years smoking Smoking Status Reviewed: 03/16/19 Currently smokes 1-5 Quitting, down to 1 Cigarettes Daily per day. 45 years smoking ETOH Use Denies alcohol use Tobacco Use Start: Unknown Patient is a current Patient reports she smoker, smokes every day is down to 1 a day Exercise Exercises regularly Type/Frequency Allergies, Adverse Reactions, Alerts Active Allergies Reaction Severity Comments Date Keflex 06/02/2013 Fentanyl Psychiatric reation 04/29/2018 Medications Active Medications SIG Qnty Indications Ordering Provider Date Colace 1 tab by mouth 90caps Alon Moise 04/20/2018 100mg Capsules 2-3 times a day MD Harris as needed Spiriva Respimat 2 puffs every 4units Lauryn Hamlin, 10/29/2017 day 2.5mcg/Act Aerosol Gabapentin 1 by mouth three 90caps Lauryn Hamlin, 10/28/2017 300mg Capsules times a day Hydrocodone-Acetaminop Four times Unknown hen daily, back pain 10-325mg Tablets Metoprolol Tartrate 1 by mouth twice Unknown 50mg a day Tablets Lexapro 1 by mouth every Unknown 20mg Tablets day Escitalopram Oxalate 1 by mouth every Unknown 20mg day Tablets Ativan take 1 tablet 45 Unknown 1mg Tablets min prior to mri, may repeat 1 x before mri if remains anxious. do not drive after taking Sucralfate 2-3 times a day Unknown 1gm Tablets Pantoprazole Sodium 1 by mouth every Unknown 20mg day Tablets DR Reed Description No Information Available Vital Signs Date Vital Result Comment 03/16/2019 2:36pm Height 63 inches 5'3" Weight 129.00 lb stated Heart Rate 76 /min BP Systolic 120 mmHg BP Diastolic 72 mmHg Respiratory Rate 12 /min Body Temperature 98.2 F Pain Level 5 BMI (Body Mass Index) 22.8 kg/m2 09/09/2018 3:40pm Height 63 inches 5'3" Heart Rate 78 /min BP Systolic 122 mmHg BP Diastolic 78 mmHg Respiratory Rate 16 /min Body Temperature 98.0 F Pain Level 5 Results Description No Information Available Procedures Description No Information Available Medical Devices Description No Information Available Encounters Description No Information Available Assessments Date Code Description Provider 03/16/2019 S82.251D Displaced comminuted fracture of shaft of Alon Iglesias MD right tibia, subse 03/16/2019 S82.871D Displaced pilon fracture of right tibia, Alon Iglesias MD subsequent encounte Plan of Treatment 03/16/2019 - Alon Iglesias MDS82.251D Displaced comminuted fracture of shaft of right tibia, subseFollow up:Follow up: 6 robtolD60.871D Displaced pilon fracture of right tibia, subsequent encounte Functional Status Description No Information Available Mental Status Description No Information Available Referrals Description No Information Available
--- OUTSIDE RECORDS SUMMARY | 2019-03-29 19:08 | XMS REPORT | Summary of Care ---
:1960 Author Organization [facility] Address [address] [facility] [place] [address] Care Team Providers Name Role Phone Ankita Ludwig Primary Care Provider Reason for Visit Reason Comments Follow-up Follow-up on Kim's esophagus. Medication Refill Pt. needs Rx for Dicyclomine. Encounter Details Date Type Department Care Team Description 02/28/2019 Office Visit Portillo Horton, Kim's esophagus without dysplasia (Primary Dx); Gastroenterology/Hepa Ruby Sainz NP Gastric ulcer without hemorrhage or perforation, unspecified chronicity; tology 1 [facility] Irritable bowel syndrome with diarrhea; [address] [facility] [place] [address] Hiatal hernia with GERD and esophagitis; [place] [address] Schatzki's ring [phone] Allergies Active Allergy Reactions Severity Noted Date Comments Subsys Unknown Reaction 10/06/2018 Keflex Hives 01/05/2013 documented as of this encounter (statuses as of 02/28/2019) Medications Medication Sig Dispensed Refills Start Date End Date Status metoprolol Take 50 mg 0 Active (LOPRESSOR) 50 MG by mouth Oral Tab TWICE DAILY. escitalopram Take 20 mg 0 Active (LEXAPRO) 20 MG by mouth Oral Tab DAILY. HYDROcodone-acetam Take 1 Tab 0 Active inophen (NORCO) by mouth 10-325 MG Oral Tab EVERY SIX HOURS NEEDED. Gabapentin 600 MG Take by 0 Active Oral Tab mouth TWICE DAILY. LORazepam (ATIVAN) Take 2 mg 0 Active 2 MG Oral Tab by mouth EVERY SIX HOURS NEEDED. pantoprazole Take 1 Tab 30 Tab 5 01/11/2019 Active (PROTONIX) 40 MG by mouth Oral Tab EC DAILY. sucralfate Take 1 Tab 90 Tab 2 02/28/2019 Active (CARAFATE) 1 GM by mouth Oral Tab THREE TIMES DAILY. dicyclomine Take 1 Tab 90 Tab 3 02/28/2019 Active (BENTYL) 20 MG by mouth Oral Tab THREE TIMES DAILY. dicyclomine Take 1 Tab 120 Tab 0 01/11/2019 02/28/2019 Discontinued (BENTYL) 20 MG by mouth (Reorder) Oral Tab FOUR TIMES DAILY. sucralfate Take 1 g by 0 02/28/2019 Discontinued (CARAFATE) 1 GM mouth THREE (Reorder) Oral Tab TIMES DAILY. documented as of this encounter (statuses as of 02/28/2019) Active Problems Problem Noted Date Kim's esophagus without dysplasia 01/11/2019 Cervicalgia 10/06/2018 Osteoporosis with pathological fracture 10/06/2018 Dysphagia 10/06/2018 Primary insomnia 10/06/2018 Abnormal weight loss 01/15/2015 Loss of appetite 01/15/2015 Dilation of right ureter 01/15/2015 Overview: Without obstruction Hiatal hernia with gastroesophageal reflux 01/15/2015 Diverticulitis of colon without hemorrhage 01/15/2015 Constipation 01/15/2015 Overview: Severe Arthritis of right foot 01/15/2015 Lumbago 01/15/2015 Lumbosacral neuritis 01/15/2015 Thoracic neuritis 01/15/2015 DDD (degenerative disc disease), thoracolumbar 01/15/2015 Essential hypertension 01/15/2015 Pain in soft tissues of limb 01/15/2015 Arthropathy of ankle and foot 01/15/2015 documented as of this encounter (statuses as of 02/28/2019) Social History Tobacco Use Types Packs/Day Years Used Date Current Every Day Smoker Cigarettes 0.25 35 Smokeless Tobacco: Never Used Alcohol Use Drinks/Week oz/Week Comments No Sex Assigned at Date Recorded Not on file Job Start Date Occupation Industry Not on file Not on file Not on file Travel History Travel Start Travel End No recent travel history available. documented as of this encounter Last Filed Vital Signs Vital Sign Reading Time Taken Comments Blood Pressure 148/94 02/28/2019 12:54 PM EST Pulse 78 02/28/2019 12:54 PM EST Temperature 36.4 02/28/2019 12:54 PM EST C (97.5 F) Respiratory Rate - - Oxygen Saturation - - Inhaled Oxygen Concentration - - Weight 57.6 kg (127 lb) 02/28/2019 12:54 PM EST Height 160 cm (5' 3") 02/28/2019 12:54 PM EST Body Mass Index 22.5 02/28/2019 12:54 PM EST documented in this encounter Patient Instructions Patient InstructionsRuby Horton NP - 02/28/2019 1:00 PM EST1. Continue the pantoprazole daily as directed 2. Continue the Sucralfate and Bentyl as directed 3. Proceed with repeat endoscopy as scheduled 4. Follow up in 2 months If you have not already been screened for Hepatitis C we would be happy to do that for you today. Currently we recommend screening for hepatitis C virus (HCV ) infection in persons at high risk for infection, and to adults born between 1945 and 1965. Thank you for choosing the [facility] for your needs today! -Ruby Horton N.P. , Please call if you need to cancel or change your appt. time. Thank you for choosing [facility] for your health care needs, and for consulting with [facility] today. You may receive a survey following this visit, or after an upcoming hospital stay. As easy as it is to feel overloaded with surveys, we are required to send them out randomly and they do provide important feedback so that we may serve your needs in the best way. Please do take the few minutes required to complete the survey if you receive one. We get them too, after seeing the doctor, and they only take a few minutes to complete. documented in this encounter Progress Notes Ruby Horton NP - 02/28/2019 1:00 PM EST PATIENT: Stefany Cox : 1960 DATE OF SERVICE: 02/28/2019 REFERRING PRACTITIONER: Ankita Ludwig PRIMARY CARE PROVIDER: Ankita Ludwig CHIEF COMPLAINT: Chief Complaint Patient presents with Follow-up Follow-up on Kim's esophagus. Medication Refill Pt. needs Rx for Dicyclomine. Subjective HISTORY OF PRESENT ILLNESS: Stefany Cox is a 58-y.o. female who presents for follow-up of EGD, which was positive for Kim'swithout dysplasia, Schatzki's ring which was dilated and gastric ulcer which was not bleeding, biopsy shows no H pylori infection. She also has a history of IBS D which is doing well with Bentyl 3 times daily. Treatment to date: Pantoprazole and Sucralfate. She is a smoker. Denies abdominal pain, heartburn, dysphagia, fatigue, nausea, vomiting, melena, hamatemesis, hematochezia, constipation, diarrhea, jaundice, fevers, chills, night sweats, weight loss, easy bruising, chest pain, shortness of breath, dysuria, hematuria, pyuria, joint pains, acholic stools, dark urine orsystemic pruritis. Current Outpatient Medications Medication Sig dicyclomine (BENTYL) 20 MG Oral Tab Take 1 Tab by mouth THREE TIMES DAILY. escitalopram (LEXAPRO) 20 MG Oral Tab Take 20 mg by mouth DAILY. Gabapentin 600 MG Oral Tab Take by mouth TWICE DAILY. HYDROcodone-acetaminophen (NORCO) 10-325 MG Oral Tab Take 1 Tab by mouth EVERY SIX HOURS NEEDED. LORazepam (ATIVAN) 2 MG Oral Tab Take 2 mg by mouth EVERY SIX HOURS NEEDED. metoprolol (LOPRESSOR) 50 MG Oral Tab Take 50 mg by mouth TWICE DAILY. pantoprazole (PROTONIX) 40 MG Oral Tab EC Take 1 Tab by mouth DAILY. sucralfate (CARAFATE) 1 GM Oral Tab Take 1 Tab by mouth THREE TIMES DAILY. No current facility-administered medications for this visit. Allergies Allergen Reactions Fentanyl [Subsys] Unknown Reaction Keflex Hives REVIEW OF SYSTEMS: All remaining review of systems was negative except for as noted in the history of present illness/subjective. Objective PHYSICAL EXAMINATION: VITALS: BP (!) 148/94 | Pulse 78 | Temp 97.5 F (36.4 C) | Ht 5' 3" ( 1.6 m) | Wt 127 lb (57.6 kg) | BMI 22.50 kg/m Body mass index is 22.5 kg/ m. GENERAL: alert, oriented, no acute distress. HEENT: No scleral icterus, MMM Psych: Affect normal Neck: no lymphadenopathy LUNGS: clear to auscultation bilaterally. HEART: regular rhythm, no murmurs, no gallops, no rubs. ABDOMEN: general exam: soft, non-tender, non-distended, without masses or organomegaly, normal active bowel sounds, Adhikari's sign negative. Extrmities: no edema Skin: clear Neuro: gait normal, a&o x 3 RECTAL: exam deferred. IMPRESSION: ICD-9-CM ICD-10-CM 1. Kmi's esophagus without dysplasia 530.85 K22.70 COMPREHENSIVE METABOLIC PANEL CBC WITH DIFFERENTIAL 2. Gastric ulcer without hemorrhage or perforation, unspecified chronicity 531.90 K25.9 COMPREHENSIVE METABOLIC PANEL CBC WITH DIFFERENTIAL 3. Irritable bowel syndrome with diarrhea 564.1 K58.0 COMPREHENSIVE METABOLIC PANEL CBC WITH DIFFERENTIAL 4. Hiatal hernia with GERD and esophagitis 553.3 K44.9 530.11 K21.0 5. Schatzki's ring 750.3 K22.2 Plan PLAN: Patient Instructions 1. Continue the pantoprazole daily as directed 2. Continue the Sucralfate and Bentyl as directed 3. Proceed with repeat endoscopy as scheduled 4. Follow up in 2 months If you have not already been screened for Hepatitis C we would be happy to do that for you today. Currently we recommend screening for hepatitis C virus (HCV ) infection in persons at high risk for infection, and to adults born between 1945 and 1965. Thank you for choosing the [facility] for your needs today! -Ruby Horton N.P. , Please call if you need to cancel or change your appt. time. Thank you for choosing [facility] for your health care needs, and for consulting with [facility] today. You may receive a survey following this visit, or after an upcoming hospital stay. As easy as it is to feel overloaded with surveys, we are required to send them out randomly and they do provide important feedback so that we may serve your needs in the best way. Please do take the few minutes required to complete the survey if you receive one. We get them too, after seeing the doctor, and they only take a few minutes to complete. Author: Ruby Horton NP 02/28/2019 13:15 documented in this encounter Plan of Treatment Date Type Specialty Care Team Description 03/31/2019 GI Procedure Gastroenterology Uvaldo Pratt MD [facility] [address] [place] [address] [phone] 03/31/2019 Hospital Encounter [facility], Short Procedure Uvaldo Sainz MD [facility] 1 [place] [address] [phone] 03/31/2019 Surgery [facility], ENDOSCOPY UPPER GI Uvaldo Sainz MD CHECK HEALING [facility] 1 [place] [address] [phone] 05/02/2019 Office Visit Gastroenterology Ruby Horton NP [address] [place] [address] [phone] Name Type Priority Associated Diagnoses Date/Time COMPREHENSIVE METABOLIC Lab Routine Kim's esophagus 02/28/2019 1:26 PM PANEL without dysplasia EST Gastric ulcer without hemorrhage or perforation, unspecified chronicity Irritable bowel syndrome with diarrhea CBC WITH DIFFERENTIAL Lab Routine Kim's esophagus 02/28/2019 1:26 PM without dysplasia EST Gastric ulcer without hemorrhage or perforation, unspecified chronicity Irritable bowel syndrome with diarrhea Name Type Priority Associated Diagnoses Order Schedule COMPREHENSIVE METABOLIC Lab Routine Kim's esophagus Expected: 2018 PANEL without dysplasia (Approximate), Gastric ulcer without Expires: 02/29/2020 hemorrhage or perforation, unspecified chronicity Irritable bowel syndrome with diarrhea CBC WITH DIFFERENTIAL Lab Routine Kim's esophagus Expected: 02/28/2019 without dysplasia (Approximate), Gastric ulcer without Expires: 03/14/2019 hemorrhage or perforation, unspecified chronicity Irritable bowel syndrome with diarrhea Health Maintenance Due Date Last Done Comments PNEUMOCOCCAL 0-64 YRS (1966 1 - PPSV23) DTaP/Tdap/Td Vaccines ( - 08/17/1971 Tdap) DEPRESSION SCREENING 1972 HIV SCREENING 08/17/1975 LIPID DISORDER SCREENING 1978 HEPATITIS C SCREENING 2000 MAMMOGRAM (SCREENING) 2000 ZOSTER IMMUNIZATION SERIES 2010 (1 of 2) PAP SMEAR 12/22/2011 12/21/2008 INFLUENZA VACCINE (#1) 2018 EGD (ESOPHAGODUODENOSCOPY) 01/05/2022 01/05/2019, 01/05/2019, 02/13/2015 Colonoscopy 05/03/2025 05/04/2015, 05/04/2015, 02/13/2015, Additional history exists HEPATITIS A IMMUNIZATION Aged Out No longer eligible SERIES based on patient's age to complete this topic HPV IMMUNIZATION SERIES Aged Out No longer eligible based on patient's age to complete this topic MENINGOCOCCAL VACCINE IMM Aged Out No longer eligible based on patient's age to complete this topic documented as of this encounter Results Not on filedocumented in this encounter Visit Diagnoses Diagnosis Kim's esophagus without dysplasia Kim's esophagus Gastric ulcer without hemorrhage or perforation, unspecified chronicity Irritable bowel syndrome with diarrhea Irritable bowel syndrome Hiatal hernia with GERD and esophagitis Schatzki's ring Congenital tracheoesophageal fistula, esophageal atresia and stenosis documented in this encounter Guarantor Name Account Type Relation to Date of Phone Billing Address Patient Stefany Cox Personal/Family 1960 [phone] [address] [phone] [place], [place] (Work) [address] documented as of this encounter
--- OUTSIDE RECORDS SUMMARY | 2019-03-29 19:08 | XMS REPORT | Summary of Care ---
:1960 Author Organization [facility] Address [address] [facility] [place] [address] Care Team Providers Name Role Phone Ankita Ludwig Primary Care Provider Reason for Referral MRI/CAT/PET Scan (Routine) Status Reason Specialty Diagnoses / Referred By Referred To Procedures Contact Contact Pending Review Diagnoses Kidney stone Pauly Giraldo PA Procedures CT ABDOMEN PELVIS WITHOUT IV CONTRAST [address] [place] [address] Reason for Visit Reason Comments New Patient Kidney Stone Encounter Details Date Type Department Care Team Description 03/28/2019 Office Visit [facility] Pauly Giraldo PA Calculus of kidney (Primary Dx); [address] Kidney stone [place] [address] [place] [address] [phone] Allergies Active Allergy Reactions Severity Noted Date Comments Subsys Unknown Reaction 10/06/2018 Keflex Hives 01/05/2013 documented as of this encounter (statuses as of 03/28/2019) Medications Medication Sig Dispensed Refills Start Date End Date Status metoprolol (LOPRESSOR) Take 50 mg by 0 Active 50 MG Oral Tab mouth TWICE DAILY. escitalopram (LEXAPRO) Take 20 mg by 0 Active 20 MG Oral Tab mouth DAILY. HYDROcodone-acetaminophe Take 1 Tab by 0 Active n (NORCO) 10-325 MG Oral mouth EVERY SIX Tab HOURS NEEDED. Gabapentin 600 MG Oral Take by mouth 0 Active Tab TWICE DAILY. LORazepam (ATIVAN) 2 MG Take 2 mg by 0 Active Oral Tab mouth EVERY SIX HOURS NEEDED. pantoprazole (PROTONIX) Take 1 Tab by 30 Tab 5 01/11/2019 Active 40 MG Oral Tab EC mouth DAILY. sucralfate (CARAFATE) 1 Take 1 Tab by 90 Tab 2 02/28/2019 Active GM Oral Tab mouth THREE TIMES DAILY. dicyclomine (BENTYL) 20 Take 1 Tab by 90 Tab 3 02/28/2019 Active MG Oral Tab mouth THREE TIMES DAILY. Tamsulosin HCl (FLOMAX) Take 1 Cap by 30 Cap 0 03/28/2019 Active 0.4 MG Oral Cap mouth DAILY. documented as of this encounter (statuses as of 03/28/2019) Active Problems Problem Noted Date Kim's esophagus [...] as of this encounter (statuses as of 03/28/2019) Social History Tobacco Use Types Packs/Day Years [...] Sign Reading Time Taken Comments Blood Pressure 126/74 03/28/2019 3:06 PM EST Pulse - - Temperature 36.6 03/28/2019 3:06 PM EST C (97.9 F) Respiratory Rate - - Oxygen Saturation - - Inhaled Oxygen Concentration - - Weight - - Height - - Body Mass Index - - documented in this encounter Progress Notes Pauly Giraldo PA - 03/28/2019 3:00 PM EST PATIENT: Stefany Cox : 1960 DATE OF SERVICE: 03/28/2019 REFERRING PRACTITIONER: Ankita Ludwig PRIMARY CARE PROVIDER: Ankita Ludwig CHIEF COMPLAINT: Chief Complaint Patient presents with New Patient Kidney Stone SUBJECTIVE: Stefany Cox is a 58-y.o. female who is seen in The office for a 3 mm right ureteral stone. She was found to have a stone on ct scan from [facility] on 03-13-2019 She developed right flank pain radiating into abdomen. She reports the pain is worse with bending over and when it first started she couldn't tie her shoe. The pain is not as bad not. She denies fever, chills, nausea, or vomitting This is her first kidney stone Her children have had kidney stones Past Medical History: Diagnosis Date Irritable bowel syndrome Past Surgical History: Procedure Laterality Date SECTION NEC CLASSICAL x2 COLONOSCOPY N/A 05/04/2015 Procedure: COLONOSCOPY; Surgeon: Uvaldo Pratt MD FACG; Location: [facility] MAIN OR COLONOSCOPY DIAGNOSTIC 2005 EGD N/A 01/05/2019 Procedure: ENDOSCOPY UPPER GI; Surgeon: Uvaldo Pratt MD FACG; Location: [facility] GI OR EGD ([facility]UD / NON MICHAUD) 1993 HYSTERECTOMY, ABDOMINAL MN APPENDECTOMY 1975 MN STOMACH SURGERY PROCEDURE UNLISTED hysterectomy 1991 Family History Problem Relation Age of Onset Hypertension Mother Heart Failure Father CAD Hypertension Father Social History Tobacco Use Smoking Status Current Every Day Smoker Packs/day: 0.25 Years: 35.00 Pack years: 8.75 Types: Cigarettes Smokeless Tobacco Never Used Current Outpatient Medications Medication Sig dicyclomine (BENTYL) [...] 1 Tab by mouth THREE TIMES DAILY. Tamsulosin HCl (FLOMAX) 0.4 MG Oral Cap Take 1 Cap by mouth DAILY. No current facility-administered medications for this visit. Allergies Allergen Reactions Fentanyl [Subsys] Unknown Reaction Keflex Hives Review of Systems Review of all other systems are negative except as listed in the HPI OBJECTIVE: PHYSICAL EXAM BP 126/74 | Temp 97.9 F (36.6 C) GENERAL: Healthy, well nourished, in no distress. NEUROLOGICAL: Alert and orientated x 3 HEAD: Normal cephalic atraumatic, NECK: Supple with no adenopathy ABDOMEN: Soft, generalized tenderness, no palpable masses BACK: No CVA tenderness Results for orders placed or performed in visit on 03/28/19 URINE DIP CLINITEK (AMB POCT) Result Value Ref Range URINE GLUCOSE (POCT) Negative Negative mg/dl URINE BILIRUBIN (POCT) Negative Negative Urine Ketones (POCT) Trace (A) Negative URINE SPECIFIC GRAVITY (POCT) 1.015 1.005 - 1.030 URINE BLOOD (POCT) Trace-Intact (A) Negative URINE PH (POCT) 6.5 5.0 - 8.0 URINE PROTEIN (POCT) Trace (A) Negative mg/dl URINE UROBILINOGEN (POCT) 0.2 0.2 - 1.0 mg/dl URINE NITRITES (POCT) Negative Negative URINE LEUKOCYTES (POCT) Negative Negative Cells/uL IMPRESSION/PLAN ICD-9-CM ICD-10-CM 1. Calculus of kidney 592.0 N20.0 URINE DIP CLINITEK (AMB POCT) 2. Kidney stone 592.[address] ABDOMEN PELVIS WITHOUT IV CONTRAST Will start her back on flomax Have her strain her urine Follow up ct scan prior to follow up in 3 weeks Go to the emergency room if fever AUTHOR: TAI Solomon 15:24 03/28/2019 documented in this encounter Plan of Treatment Date Type Specialty Care Team Description 03/31/2019 GI Procedure Gastroenterology Uvaldo Pratt MD [facility] [address] [place] [address] [phone] 03/31/2019 Hospital Encounter [facility], Short Procedure Uvaldo Sainz MD FAC[facility] 1 [place] [address] [phone] 03/31/2019 Surgery [facility], ENDOSCOPY UPPER GI Uvaldo Sainz MD CHECK HEALING [facility] [address] [place] [address] [phone] 04/12/2019 Ancillary Radiology Procedure 04/21/2019 Office Visit Urology Pauly Giraldo PA [address] [place] [address] [phone] 05/02/2019 Office Visit Gastroenterology Ruby Horton, [employer] [address] [place] [address] [phone] Name Type Priority Associated Diagnoses Order Schedule CT ABDOMEN PELVIS Imaging Routine Kidney stone Expected: 03/28/2019, WITHOUT IV CONTRAST Expires: 03/27/2020 Health Maintenance Due Date Last Done Comments PNEUMOCOCCAL 0-64 YRS (1 of 1966 1 - PPSV23) DTaP/Tdap/Td Vaccines ( - [...] this topic documented as of this encounter Procedures Procedure Name Priority Date/Time Associated Diagnosis Comments URINE DIP CLINITEK Routine 03/28/2019 3:18 PM Calculus of kidney Results for this (AMB POCT) EST procedure are in the results section. documented in this encounter Results URINE DIP CLINITEK (AMB POCT) (03/28/2019 3:18 PM EST) URINE GLUCOSE (POCT) Negative Negative mg/dl [facility] POCT URINE BILIRUBIN Negative Negative [facility] (POCT) POCT Urine Ketones (POCT) Trace (A) Negative [facility] POCT URINE SPECIFIC 1.015 1.005 - 1.030 [facility] GRAVITY (POCT) POCT URINE BLOOD (POCT) Trace-Intact (A) Negative [facility] POCT URINE PH (POCT) 6.5 5.0 - 8.0 [facility] POCT URINE PROTEIN (POCT) Trace (A) Negative mg/dl [facility] POCT URINE UROBILINOGEN 0.2 0.2 - 1.0 mg/dl [facility] (POCT) POCT URINE NITRITES Negative Negative [facility] (POCT) POCT URINE LEUKOCYTES Negative Negative [facility] (POCT) Cells/uL POCT Specimen Urine - Urine specimen (specimen) Performing Organization Address City/State/Zipcode Phone Number [facility] [address] [place] [address] documented in this encounter Visit Diagnoses Diagnosis Calculus of kidney Kidney stone Calculus of kidney documented in this encounter Guarantor Name Account Type Relation to Date of Phone Billing Address Patient Kenny,Stefany Julian Personal/Family 1960 [address] [phone] [place], [place] (Work) [address] documented as of this encounter"
[2019-03-29 19:46] LABS: ABS Basophils 0.1 10^3/ul (0-0.2); ABS Eosinophils 0.1 10^3/ul (0-0.6); ABS Lymphocytes 3.3 10^3/ul (1.0-4.8); ABS Monocytes 0.6 10^3/ul (0-0.8); ABS Neutrophils 4.3 10^3/ul (1.5-7.7); Eosinophil % 1.4 %; Hematocrit 39 % (35-47); Hemoglobin 13.8 g/dL (12.0-16.0); Lymphocyte % 39.7 %; Mean Corpuscular HGB Conc 35 g/dL (31-36); Mean Corpuscular Hemoglobin 32 pg (27-31); Mean Corpuscular Volume 89 fL (80-97); Mean Platelet Volume 7.4 fL (7.4-10.4); Platelet Count 393 10^3/uL (150-450); Red Blood Count 4.38 10^6 /uL (3.70-4.87); Red Cell Distribution Width 13 % (10-15); White Blood Count 8.4 10^3/uL (3.5-10.8)
[2019-03-29 19:52] LABS: INR 1.08 (0.82-1.09)
--- NOTE | 2019-03-29 19:54 | ED ---
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 Patient reports urethra pain, kidney pain, liver pain, [place], and unstable BP for the past seven days. She thinks her symptoms can be attributed to a Reclast infusion at [facility] on 03/08. Pt says BP medication usually works in episodes of BP uncomfortability but not for this episode. The patient rates the pain 5/10 in severity. Symptoms aggravated by nothing. Symptoms alleviated by nothing. - History Of Current Complaint Chief Complaint: EDChestPainROMI Time Seen by Provider: 03/29/19 19:30 Hx Obtained From: Patient Onset/Duration: Lasting Days, Still Present Timing: Constant Severity Currently: Moderate Aggravating Factor(s): nothing Alleviating Factor(s): nothing Associated Signs And Symptoms: Positive: Headache, Chest Pain - substernal and right sided chest heaviness, Dysuria - urethra pain, Other - liver and kidney pain and unstable BP - Allergies/Home Medications Allergies/Adverse Reactions: Allergies Allergy/AdvReac Type Severity Reaction Status Date / Time cephalexin [From Keflex] Allergy Hives Verified 04/17/18 11:10 fentanyl Allergy Unknown Verified 03/29/19 19:14 Reaction Details Home Medications: Home Medications Amitriptyline TAB* [Elavil TAB*] 10 mg PO BEDTIME 03/29/19 [History Confirmed ] Dicyclomine CAP* [Bentyl CAP*] 20 mg PO TID PRN 03/29/19 [History Confirmed ] Escitalopram * [Lexapro *] 20 mg PO DAILY 03/29/19 [History Confirmed 03/29/19] Gabapentin CAP(*) [Neurontin 300 CAP(*)] 600 mg PO BID 03/29/19 [History Confirmed 03/29/19] LORazepam(nf) [Ativan TAB(nf)] 1 - 2 mg PO BID PRN 03/29/19 [History Confirmed 03/29/19] Pantoprazole TAB * [Protonix TAB*] 40 mg PO DAILY 03/29/19 [History Confirmed ] Tamsulosin CAP* [Flomax CAP*] 0.4 mg PO DAILY 03/29/19 [History Confirmed ] PMH/Surg Hx/FS Hx/Imm Hx Endocrine/Hematology History: Denies: Hx Blood Disorders, Hx Diabetes, Hx Thyroid Disease, Hx Anemia Cardiovascular History: Reports: Hx Hypertension Denies: Hx Hypercholesterolemia Respiratory History: Reports: Hx Pneumonia, Other Respiratory Problems/ Disorders - pneumonia Denies: Hx Asthma, Hx Chronic Obstructive Pulmonary Disease (COPD) GI History: Reports: Hx Gastroesophageal Reflux Disease, Hx Hiatal Hernia, Hx Irritable Bowel Denies: Hx Ulcer Musculoskeletal History: Reports: Hx Back Problems, Other Musculoskeletal History - neck pain- bone spurs and pinched nerve, back pain Sensory History: Reports: Hx Contacts or Glasses - Reading glasses Denies: Hx Hearing Aid Opthamlomology History: Reports: Hx Contacts or Glasses - Reading glasses Neurological History: Reports: Hx Headaches Denies: Hx Seizures Psychiatric History: Reports: Hx Anxiety, Hx Depression - Surgical History Surgery Procedure, Year, and Place: appe, hysterectomy, oopher, csection x2, knee surgery, ankle surgery for "shattered" Hx Anesthesia Reactions: No Infectious Disease History: No Infectious Disease History: Denies: Hx Clostridium Difficile, Hx Hepatitis, Hx Human Immunodeficiency Virus (HIV), Hx of Known/Suspected MRSA, Hx Shingles, Hx Tuberculosis, Traveled Outside the [place] in Last 30 Days - Family History Known Family History: Positive: Cardiac Disease - father passed from [place] - Social History Alcohol Use: None Hx Substance Use: No Substance Use Type: Reports: None Substance Use Comment - Amount & Last Used: pain meds per pain clinic Smoking Status (MU): Light Every Day Tobacco Smoker Type: Cigarettes Amount Used/How Often: 6-7 daily Review of Systems Positive: Chest Pain - substernal and right sided chest heaviness, Other - BP unstable Positive: Other - Liver and kidney pain Positive: dysuria - urethra pain Positive: Headache All Other Systems Reviewed And Are Negative: Yes Physical Exam - Summary Physical Exam Summary: Constitutional: Well-developed, Well-nourished, Alert. (-) Distressed Skin: Warm, Dry HENT: Normocephalic; Atraumatic Eyes: Conjunctiva normal Neck: Musculoskeletal ROM normal neck. (-) JVD, (-) Stridor, (-) Tracheal deviation Cardio: Rhythm regular, rate normal, Heart sounds normal; Intact distal pulses; The pedal pulses are 2+ and symmetric. Radial pulses are 2+ and symmetric. (-) Murmur Pulmonary/Chest wall: Effort normal. (-) Respiratory distress, (-) Wheezes, (-) Rales Abd: Soft, (-) tenderness, (-) Distension, (-) Guarding, (-) Rebound Musculoskeletal: (-) Edema Lymph: (-) Cervical adenopathy Neuro: Alert, Oriented x3 Psych: Mood and affect Normal Triage Information Reviewed: Yes Vital Signs On Initial Exam: Initial Vitals Temp Pulse Resp BP Pulse Ox 97.8 F 65 18 177/100 98 03/29/19 19:11 03/29/19 19:11 03/29/19 19:11 03/29/19 19:11 03/29/19 19:11 Vital Signs Reviewed: Yes Procedures - Sedation Patient Received Moderate/Deep Sedation with Procedure: No Diagnostics - Vital Signs Vital Signs Temp Pulse Resp BP Pulse Ox 03/29/19 19:11 97.8 F 65 18 177/100 98 - Laboratory Result Diagrams: 03/29/19 19:24 03/29/19 19:24 Lab Statement: Any lab studies that have been ordered have been reviewed, and results considered in the medical decision making process. - Radiology CXR Radiology Interpretation Completed By: ED Physician Summary of Radiographic Findings: CXR shows right pleural effusion. Pending official report. - EKG 191 Cardiac Rate: NL EKG Rhythm: Sinus Rhythm Summary of EKG Findings: Normal sinus rhythm at 62 bpm, normal P axis, V-rate 50 -99, normal OR, normal QRS, normal QTc, normal axis, normal ST, normal T-waves, normal EKG. Complex Multi-Symp Course/Dx Course Of Treatment: 58 year old F presenting to [facility] complains of substernal and right sided chest heaviness since earlier today. Physical exam findings: normal. Bloodwork results with no significant abnormalities except for H MCH, H BUN/Creatinine Ratio. An EKG shows normal sinus rhythm at 62 bpm, normal P axis, V-rate 50-99, normal OR, normal QRS, normal QTc, normal axis, normal ST, normal T-waves, normal EKG. CXR shows right pleural effusion per radiologist. In the ED course, the patient was given 650 mg Acetaminophen. Patient will be discharged home with a follow up from PCP. Patient was instructed to return to Emergency Department for new or worsening symptoms. Patient understands and is agreeable to this plan. - Diagnoses Provider Diagnoses: Chest pain, Palpitations, Medication side effect Discharge ED - Sign-Out/Discharge Documenting (check all that apply): Patient Departure - discharge - Discharge Plan Condition: Stable Disposition: HOME Patient Education Materials: Heart Palpitations (ED), Musculoskeletal Pain (ED) Print Language: CITIZEN OF [place] Referrals: No Primary Care Phys,NOPCP [Primary Care Provider] - Additional Instructions: Follow-up with your primary care doctor. - Billing Disposition and Condition Condition: STABLE Disposition: Home - Attestation Statements Document Initiated by Scribe: Yes Documenting Scribe: Stephen Cruz Provider For Whom Scribe is Documenting (Include Credential): Génesis Thornton MD Scribe Attestation: I, Stephen Cruz, scribed for Génesis Matthews MD on 03/31/19 at 0424. Scribe Documentation Reviewed: Yes Provider Attestation: The documentation as recorded by the Stephen godinez accurately reflects the service I personally performed and the decisions made by me, Génesis Matthews MD Status of Scribe Document: Viewed
[2019-03-29 20:06] LABS: Albumin 4.4 g/dL (3.2-5.2); Calcium 9.3 mg/dL (8.6-10.3); Potassium 3.5 mmol/L (3.5-5.0); Total Bilirubin 0.5 mg/dL (0.2-1.0)
[2019-03-29 20:12] LABS: Albumin/Globulin Ratio 1.6 (1-3); BUN/Creatinine Ratio 22.4 (8-20); EGFR African American 109.4 (>60); EGFR Non-African American 90.4 (>60); Globulin 2.8 g/dL (2-4); Total Protein 7.2 g/dL (6.4-8.9)
[2019-03-29] MEDS ORDERED: Acetaminophen TAB* 325 MG PO ONE (21:50)
[2019-03-29 23:42] VITALS: BP 138/78
== END 2019-03-29 23:41 | disposition home or self-care (01) ==
LOC: ED 19:02
DX: R07.89 Other chest pain (principal); R00.2 Palpitations; R51 Headache; T50.995A Adverse effect of other drugs, medicaments and biological substances, initial encounter; Y92.9 Unspecified place or not applicable; N36.8 Other specified disorders of urethra; N23 Unspecified renal colic; K76.89 Other specified diseases of liver; I10 Essential (primary) hypertension; K21.9 Gastro-esophageal reflux disease without esophagitis; F41.9 Anxiety disorder, unspecified; F32.9 Major depressive disorder, single episode, unspecified; Z90.710 Acquired absence of both cervix and uterus; Z90.722 Acquired absence of ovaries, bilateral; Z90.89 Acquired absence of other organs; Z88.1 Allergy status to other antibiotic agents; Z88.5 Allergy status to narcotic agent; F17.210 Nicotine dependence, cigarettes, uncomplicated
CPT/HCPCS: 36415; 71045; 80053; 84484; 85025; 85610; 93005; 99283; A9270-GY